=== PATIENT | male | born 1955 | race Caucasian/White ===

== ENCOUNTER 2017-07-13 17:24 | Emergency (ER) | payer MEDICARE, SELFPAY ==
[~2017-07-13] VITALS: Ht 180.3 cm; Wt 122.9 kg
[~2017-07-13 17:24] MED LIST: ALBU.083IS IH; ALBU90OI6 INH; ATEN50 PO; AZIT250 PO; Duoneb 2.5-0.5 M3 ML INH; FLUSAL2505 IH; METF500 PO; Monodox100 MG PO; PRED20 PO; Percocet 5-3251 EACH PO; Prednisone10 M1 PO; TIOT18 INH
[2017-07-13 17:35] LABS: Source, Urine Clean Catch
[2017-07-13 17:41] LABS: Appearance, Urine Hazy (Clear); Bilirubin, Urine Neg (Neg); Blood, Urine 5+ (Neg); Color, Urine Yellow (P-Yellow); Glucose Qualitative, Urine 4+ (Neg); Ketones, Urine Neg (Neg); Leukocyte Esterase, Urine 1+ (Neg); Nitrite, Urine Neg (Neg); Protein, Urine 2+ (Neg); Specific Gravity, Urine 1.015 (1.003-1.022); Urobilinogen, Urine NORM (Normal)
[2017-07-13 18:21] LABS: Bacteria Few /hpf; Red Blood Cells, Urine 50-100 /hpf (0-2); Squamous Epithelial Cells Rare /hpf (Few)
[2017-07-13 18:28] LABS: BASOPHILS ABSOLUTE AUTO 0.01 K/mm3 (0.00-0.23); BASOPHILS PERCENT AUTO 0 % (0-2); EOSINOPHILS ABSOLUTE AUTO 0.01 K/mm3 (0.00-0.68); EOSINOPHILS PERCENT AUTO 0 % (0-6); Hematocrit 44.7 % (37.0-53.0); Hemoglobin 14.8 g/dL (13.5-17.5); IMMATURE GRAN PERCENT AUTO 1 % (0-1); LYMPHOCYTES ABSOLUTE AUTO 1.32 K/mm3 (0.84-5.20); LYMPHOCYTES PERCENT AUTO 8 % (21-46); MONOCYTES PERCENT AUTO 5 % (4-13); Mean Corpuscular HGB Conc 33.1 g/dL (31.5-36.5); Mean Corpuscular Volume 88 fL (80-100); NEUTROPHILS ABSOLUTE AUTO 14.34 K/mm3 (1.96-9.15); NEUTROPHILS PERCENT AUTO 86 % (41-73); Platelet Count 451 K/mm3 (150-400); RDW Coefficient Variation 14.5 % (11.7-14.2); RDW Standard Deviation 46.8 fL (35.1-46.3); White Blood Cell Count 16.58 K/mm3 (4.00-11.30)
[2017-07-13 18:38] LABS: Albumin, Blood 3.5 g/dL (3.4-5.0); Albumin/Globulin Ratio 0.8 (0.8-1.8); Bilirubin, Total 0.3 mg/dL (0.1-1.0); Bun/Creatinine Ratio 23.5 (12.0-20.0); Calcium, Blood 8.9 mg/dL (8.5-10.1); Creatinine, Blood 1.49 mg/dL (0.60-1.20); Globulin, Blood 4.3 g/dL (2.2-4.0); Potassium, Blood 5.1 mmol/L (3.5-5.5); Total Protein, Blood 7.8 g/dL (6.4-8.2)
[2017-07-13] MEDS ORDERED: Roxicodone5 MG PO (20:59)
[2017-07-13] MEDS ORDERED: Zofran4 MG PO (20:59)
[2017-08-20] MEDS ORDERED: ATEN50 PO (16:41)
[2017-08-20] MEDS ORDERED: RAMI5 PO (16:42)
[2017-08-20] MEDS ORDERED: TIOT18 INH (16:42)
[2017-08-20] MEDS ORDERED: Ipratr-Albuterol3 ML INH (16:43)
== END 2017-07-13 21:18 | disposition home or self-care (01) ==
LOC: ER 17:24
PROVIDERS: Nurse Practitioner Family; Physician Assistant
DX: N28.89 Other specified disorders of kidney and ureter (principal); N32.89 Other specified disorders of bladder; J44.9 Chronic obstructive pulmonary disease, unspecified; I10 Essential (primary) hypertension; Z88.0 Allergy status to penicillin; Z79.899 Other long term (current) drug therapy; Z79.52 Long term (current) use of systemic steroids; Z87.891 Personal history of nicotine dependence
CPT/HCPCS: 36415; 51798; 74176; 80053; 81001; 85025; 87086; 96361; 96374; 96375; 96376; 99284; J1170; J1885; J2405; J7030

== ENCOUNTER → 2017-07-23 | Outpatient (CLI) | payer MEDICARE, SELFPAY ==
[~2017-07-23] MED LIST changes: +Ipratr-Albuterol3 ML INH; +RAMI5 PO; +Roxicodone5 MG PO; +SENN187 PO; +Zofran4 MG PO
== END | disposition home or self-care (01) ==
LOC: PLD 07:21
DX: N28.89 Other specified disorders of kidney and ureter (principal)
CPT/HCPCS: 88108

== ENCOUNTER 2017-08-22 07:04 | Inpatient (IN) | payer MEDICARE, SELFPAY ==
[~2017-08-22] VITALS: Ht 180.3 cm; Wt 119.3 kg
[~2017-08-22 07:04] MED LIST changes: -SENN187 PO
[2017-08-22] MEDS ORDERED: Percocet 5-3251 EACH PO (15:46)
[2017-08-23 04:41] LABS: Hemoglobin 13.9 g/dL (13.5-17.5); Mean Corpuscular HGB 28.7 pg (26.0-34.0); Mean Corpuscular HGB Conc 32.3 g/dL (31.5-36.5); Mean Corpuscular Volume 89 fL (80-100); Mean Platelet Volume 9.9 fL (9.1-12.4); Platelet Count 401 K/mm3 (150-400); RDW Coefficient Variation 14.9 % (11.7-14.2); RDW Standard Deviation 48.6 fL (35.1-46.3); Red Blood Cell Count 4.85 M/mm3 (4.30-5.90)
[2017-08-23 05:02] LABS: Bun/Creatinine Ratio 7.4 (12.0-20.0); Calcium, Blood 8.2 mg/dL (8.5-10.1); Creatinine, Blood 1.49 mg/dL (0.60-1.20)
[2017-08-23] MEDS ORDERED: SENN187 PO (08:45)
== END 2017-08-23 12:30 | disposition home or self-care (01) | DRG 661 ==
LOC: SURS 07:04
PROVIDERS: Urology
PROC: 0TT14ZZ Resection of Left Kidney, Percutaneous Endoscopic Approach (ICD-10-PCS; principal; 2017-08-22 09:00)
DX: N28.89 Other specified disorders of kidney and ureter (principal); D41.12 Neoplasm of uncertain behavior of left renal pelvis; I10 Essential (primary) hypertension; J44.9 Chronic obstructive pulmonary disease, unspecified; Z98.1 Arthrodesis status; Z87.891 Personal history of nicotine dependence
CPT/HCPCS: 36415; 80048; 82947; 85027; 88307; 94640; 94760; J0360; J0690; J1170; J2060; J2250; J2370; J3010; J7042; J7120

== ENCOUNTER 2019-05-24 13:18 | Inpatient (IN) | payer MEDICARE ==
[~2019-05-24] VITALS: Ht 180.3 cm; Wt 119.3 kg
[~2019-05-24 13:18] MED LIST changes: +SENN187 PO
[2019-05-24 13:48] LABS: PCO2 Arterial 33.2 mmHg (35-45); PO2 Arterial 65.3 mmHg (80-100); pH Blood Arterial 7.37 (7.35-7.45)
[2019-05-24 14:12] LABS: BASOPHILS PERCENT AUTO 1 % (0-2); EOSINOPHILS PERCENT AUTO 0 % (0-6); Hematocrit 54.7 % (37.0-53.0); Hemoglobin 17.6 g/dL (13.5-17.5); IMMATURE GRAN ABSOLUTE AUTO 0.12 K/mm3 (0.00-0.10); IMMATURE GRAN PERCENT AUTO 1 % (0-1); LYMPHOCYTES ABSOLUTE AUTO 0.81 K/mm3 (0.84-5.20); LYMPHOCYTES PERCENT AUTO 4 % (21-46); MONOCYTES ABSOLUTE AUTO 0.26 K/mm3 (0.16-1.47); MONOCYTES PERCENT AUTO 1 % (4-13); Mean Corpuscular HGB 30.9 pg (26.0-34.0); Mean Corpuscular HGB Conc 32.2 g/dL (31.5-36.5); Mean Corpuscular Volume 96 fL (80-100); NEUTROPHILS ABSOLUTE AUTO 19.08 K/mm3 (1.96-9.15); NEUTROPHILS PERCENT AUTO 94 % (41-73); Platelet Count 340 K/mm3 (150-400); RDW Coefficient Variation 14.5 % (11.7-14.2); RDW Standard Deviation 50.4 fL (35.1-46.3); White Blood Cell Count 20.37 K/mm3 (4.00-11.30)
[2019-05-24] MEDS ORDERED: AMLODIPINE BES2.5 MG PO (14:19)
[2019-05-24 14:21] LABS: International Normalized Ratio 1.03; Prothrombin Time Results 10.9 Sec (9.7-11.5)
[2019-05-24 14:30] LABS: Alanine Aminotransfer (ALT/SGP 33 U/L (12-78); Albumin, Blood 3.7 g/dL (3.4-5.0); Albumin/Globulin Ratio 0.7 (0.8-1.8); Alk Phos 106 U/L (50-136); Anion Gap 13 mmol/L (6-16); Aspartate Aminotrans (AST/SGOT 30 U/L (12-37); Bilirubin, Total 1.5 mg/dL (0.1-1.0); Blood Urea Nitrogen 27 mg/dL (8-24); Bun/Creatinine Ratio 15.8 (12.0-20.0); CO2, Blood 18 mmol/L (21-32); Calcium, Blood 8.6 mg/dL (8.5-10.1); Chloride, Blood 102 mmol/L (98-108); Creatinine, Blood 1.71 mg/dL (0.60-1.20); Ethanol (Alcohol), Blood, Med <3 mg/dL; Globulin, Blood 5.1 g/dL (2.2-4.0); Glomerular Filtration Rate 43 (60-); Glucose, Blood 130 mg/dL (70-99); Potassium, Blood 4.9 mmol/L (3.5-5.5); Sodium, Blood 133 mmol/L (136-145); Total Protein, Blood 8.8 g/dL (6.4-8.2); Troponin I <0.015 ng/mL (0.000-0.040)
[2019-05-24 14:38] LABS: Influenza A Negative (NEGATIVE); Influenza B Negative (NEGATIVE)
[2019-05-24 15:53] LABS: Bilirubin, Urine Neg (Neg); Blood, Urine 4+ (Neg); Glucose Qualitative, Urine Neg (Neg); Ketones, Urine Neg (Neg); Leukocyte Esterase, Urine 1+ (Neg); Nitrite, Urine Neg (Neg); Protein, Urine 3+ (Neg); Urobilinogen, Urine NORM (Normal)
[2019-05-24 16:10] LABS: Appearance, Urine Hazy (Clear); Color, Urine Yellow (P-Yellow); U Amphetamine Screen DETECTED; U Barbituate Screen Not Detected; U Benzodiazapine Screen Not Detected; U Buprenorphine Screen Not Detected; U Cannabinoids Screen DETECTED; U Cocaine Screen Not Detected; U Methadone Screen Not Detected; U Methamphetamine Screen DETECTED; U Opiates Screen Not Detected; U Oxycodone Screen Not Detected; U Phencyclidine Screen Not Detected; U Propoxyphene Screen Not Detected
[2019-05-24 16:12] LABS: Bacteria Few /hpf; Mucus Mod (0-Heavy); Squamous Epithelial Cells Mod /hpf (Few)
[2019-05-24 16:13] LABS: Amorphous Light (0-Heavy)
[2019-05-24 16:15] LABS: Campylobacter Sp Not Detected (NOT DETECT)
[2019-05-24 16:16] LABS: Adenovirus F 40/41 Not Detected (NOT DETECT); Astrovirus Not Detected (NOT DETECT); Cryptosporidium Not Detected (NOT DETECT); Cyclospora Cayetanensis Not Detected (NOT DETECT); E. Coli O157 Not Detected (NOT DETECT); Entamoeba Histolytica Not Detected (NOT DETECT); Enteroaggregative E. coli-EAEC Not Detected (NOT DETECT); Enteropathogenic E. coli-EPEC Not Detected (NOT DETECT); Enterotoxigenic E. coli-ETEC Not Detected (NOT DETECT); Giardia Lamblia Not Detected (NOT DETECT); Norovirus GI/GII Not Detected (NOT DETECT); Plesiomonas Shigelloides Not Detected (NOT DETECT); Rotavirus A Not Detected (NOT DETECT); Salmonella Sp Not Detected (NOT DETECT); Sapovirus Not Detected (NOT DETECT); Shiga Toxin-prod E. coli-STEC Not Detected (NOT DETECT); Shigella/Enteroin E. coli-EIEC Not Detected (NOT DETECT); Vibrio Cholerae Not Detected (NOT DETECT); Vibrio Sp Not Detected (NOT DETECT); Yersinia Enterocolitica Not Detected (NOT DETECT)
--- NOTE | 2019-05-24 17:00 | NUR ---
INITIAL ASSESSMENT PATIENT ARRIVED TO UNIT FROM ER AT 1615. PATIENT INTUBATED AND SEDATED. PATIENT UNRESPONSIVE. R EYE SWOLLEN SHUT, UNABLE TO OPEN, PURULENT FLUID DRAINS OUT WHEN TRY TO OPEN EYE. STATES THAT PATIENT'S EYE WAS FINE YESTERDAY BUT WHEN HE WOKE UP IT WAS SWOLLEN SHUT. L EYE PUPIL 2+ IN SIZE, REACTS BRISKLY TO LIGHT; SCLERAL EDEMA NOTED. TEMPORAL TEMP OF 99.5 DEGREES FAHRENHEIT. CORE TEMP OF 102.7. PATIENT ON VENT SETTINGS OF AC 16, TV 450, PEEP 5, FIO2 OF 65%. EXPIRATORY WHEEZES NOTED IN IVAN, INSPIRATORY WHEEZES NOTED IN LLL, RUL CLEAR, RLL DIMINISHED. PATIENT STATES PATIENT HAS SLEEP APNEA AND IS SUPPOSED TO USE CPAP AT NIGHT AT HOME BUT REFUSES. MODERATE AMOUNT OF WHITE, FROTHY SPUTUM BEING SUCTIONED FROM ETT. PATIENT IN SR, HR 120S TO 130S. BP STABLE. SCDS IN PLACE. ABDOMEN MODERATELY DISTENDED, SOFT, WITH HYPOACTIVE BS. PATIENT HAS RECTAL TUBE IN PLACE, DRAINING YELLOW/ PINK LIQUID. PATIENT C. DIFF POSITIVE. PATIENT HAS OG TO LIS. OG DRAINING GREEN/ BLACK LIQUID IN ER; GUIAC NEGATIVE. TEMP PROBE GIFFORD DRAINING SCANT AMOUNT OF DARK YELLOW URINE. BURN NOTED TO INNER R WRIST- AREA CLEANSED, ANTIBIOTIC OINTMENT AND DRESSING APPLIED. BRUISES AND SCABS SCATTERED T/O BODY. PROPOFOL INFUSING AT 30 MCG/ KG/ MINUTE. AT BEDSIDE. BED LOW. WILL CONTINUE TO MONITOR FREQUENTLY THROUGHOUT SHIFT.
--- NOTE | 2019-05-24 18:50 | NUR ---
DR. ZAMBRANO VIEWED CHEST XRAY. STATED THAT CENTRAL LINE GOOD TO USE.
--- NOTE | 2019-05-24 19:15 | NUR ---
SHIFT SUMMARY PATIENT REMAINED INTUBATED AND SEDATED ON PROPOFOL. PATIENT REMAINS ON SAME VENT SETTINGS. PATIENT REMAINS IN ST, HYPOTENSIVE. LEVOPHED INFUSING AT 4 MCG/ MINUTE. 2 L NS BOLUS GIVEN SINCE ARRIVAL TO ICU. ALBUMIN INFUSING. IV ANTIBIOTICS BEING GIVEN. DR. ZAMBRANO PLACED CENTRAL LINE AND OK TO BE USED. ADMIT DATA COMPLETE EXCEPT HOME MED LIST; TO BRING LIST IN WHEN SHE COMES NEXT. NO OTHER ACUTE CHANGES TO NOTE ON AT THIS TIME. REPORT GIVEN TO ASSUMING SOUND INSTALLATION WORKER NURSES. NO SIGNS OF PAIN AT THIS TIME. BED LOW. WENT HOME FOR NIGHT.
--- NOTE | 2019-05-24 21:30 | NUR ---
ASSUMPTION OF CARE ASSUMED CARE OF PT AT 1900. PT INTUBATED AND SEDATED, VENT SET TO AC 16/450/5/65%, PROPOFOL RUNNING AT 45. LUNG SOUNDS COARSE AND DIMINISHED IN THE BASES, TACHYPNEIC WITH RATE 25-30'S. MONITOR SHOWS SINUS TACHYCARDIA WITH FREQUENT PAC'S, RATE 100-120, BP MAINTAINED WITH LEVO GTT TITRATED FROM 4 TO 10 (SEE FLOWSHEET). PT RESPONDS TO PAINFUL STIMULI, NO GAG REFLEX PRESENT. RECTAL TUBE IN PLACE DRAINING LIQUID PINK/YELLOW STOOL. GIFFORD PRESENT, LITTLE URINE OUTPUT NOTED AT THIS TIME. CENTRAL LINE TO L SUBCLAVIAN, INFUSING.
[2019-05-24 22:35] LABS: PCO2 Arterial 40.7 mmHg (35-45); PO2 Arterial 142 mmHg (80-100); pH Blood Arterial 7.18 (7.35-7.45)
[2019-05-25 04:23] LABS: BASOPHILS ABSOLUTE AUTO 0.05 K/mm3 (0.00-0.23); BASOPHILS PERCENT AUTO 0 % (0-2); Hematocrit 42.1 % (37.0-53.0); Hemoglobin 12.9 g/dL (13.5-17.5); LYMPHOCYTES ABSOLUTE AUTO 0.16 K/mm3 (0.84-5.20); LYMPHOCYTES PERCENT AUTO 1 % (21-46); MONOCYTES ABSOLUTE AUTO 1.03 K/mm3 (0.16-1.47); MONOCYTES PERCENT AUTO 5 % (4-13); Mean Corpuscular HGB 30.5 pg (26.0-34.0); Mean Corpuscular HGB Conc 30.6 g/dL (31.5-36.5); Mean Platelet Volume 11.2 fL (9.1-12.4); Platelet Count 228 K/mm3 (150-400); RDW Coefficient Variation 15.1 % (11.7-14.2); RDW Standard Deviation 55.5 fL (35.1-46.3); Red Blood Cell Count 4.23 M/mm3 (4.30-5.90); White Blood Cell Count 22.82 K/mm3 (4.00-11.30)
[2019-05-25 04:25] LABS: EOSINOPHILS PERCENT AUTO 0 % (0-6); IMMATURE GRAN ABSOLUTE AUTO 0.21 K/mm3 (0.00-0.10); IMMATURE GRAN PERCENT AUTO 1 % (0-1); Mean Corpuscular Volume 100 fL (80-100); NEUTROPHILS ABSOLUTE AUTO 21.37 K/mm3 (1.96-9.15); NEUTROPHILS PERCENT AUTO 94 % (41-73)
[2019-05-25 04:41] LABS: BAND PERCENT MAN 44 % (0-8); BASOPHILS PERCENT MAN 0 % (0-2); EOSINOPHILS PERCENT MAN 0 % (0-6); METAMYELOCYTE ABSOLUTE MAN 0.45 K/mm3 (0.00-0.00); METAMYELOCYTE PERCENT MAN 2 % (0-0); MONOCYTES ABSOLUTE MAN 0.45 K/mm3 (0.16-1.47); MONOCYTES PERCENT MAN 2 % (4-13); SEG NEUTROPHILS PERCENT MAN 52 % (41-73); TOTAL CELLS COUNTED 100
[2019-05-25 04:45] LABS: Magnesium, Blood 1.6 mg/dL (1.6-2.4); Troponin I 0.054 ng/mL (0.000-0.040)
[2019-05-25 04:47] LABS: Alanine Aminotransfer (ALT/SGP 18 U/L (12-78); Albumin/Globulin Ratio 1.1 (0.8-1.8); Alk Phos 40 U/L (50-136); Anion Gap 7 mmol/L (6-16); Aspartate Aminotrans (AST/SGOT 22 U/L (12-37); Bilirubin, Total 0.8 mg/dL (0.1-1.0); Blood Urea Nitrogen 35 mg/dL (8-24); Bun/Creatinine Ratio 9.4 (12.0-20.0); CO2, Blood 19 mmol/L (21-32); Calcium, Blood 6.8 mg/dL (8.5-10.1); Chloride, Blood 111 mmol/L (98-108); Creatinine, Blood 3.73 mg/dL (0.60-1.20); Globulin, Blood 2.7 g/dL (2.2-4.0); Glomerular Filtration Rate 18 (60-); Glucose, Blood 255 mg/dL (70-99); Phosphorus, Blood 3.3 mg/dL (2.5-4.9); Potassium, Blood 6.2 mmol/L (3.5-5.5); Sodium, Blood 137 mmol/L (136-145); Vancomycin, Trough 20.1 ug/mL (5.0-10.0)
[2019-05-25 04:49] LABS: Total Protein, Blood 5.7 g/dL (6.4-8.2)
[2019-05-25 05:16] LABS: PCO2 Arterial 41.3 mmHg (35-45); pH Blood Arterial 7.24 (7.35-7.45)
--- NOTE | 2019-05-25 07:25 | NUR ---
SHIFT SUMMARY PT REMAINS INTUBATED AND SEDATED RESPONDS TO PAINFUL STIMULI, VENT SET TO AC 16/450/5/30%, 02 SATURATIONS MAINTAINED ABOVE 90%, LUNGS SOUNDS COARSE AND DIMINISHED IN THE BASES T/O SHIFT, TACHYPNEIC WITH RATE 25-LOW 30'S. MONITOR SHOWS SINUS RHYTHM, TACHYCARDIA WITH PAC'S, LEVO GTT AT 15 TO MAINTAIN BP. TMAX THIS SHIFT 102.4, PRN TYLENOL ADMINISTERD x2. RECTAL TUBE IN PLACE, MINIMAL DRAINAGE DURING LAST HALF OF SHIFT. GIFFORD IN PLACE, LOW URINE OUTPUT THIS SHIFT. CALL PLACED TO DR ZAMBRANO @4608 REGARDING MORNING LABS (POTASSIUM 6.2, ABG pH 7.242) SEE NEW ORDERS. PHARMACY NOTIFIED OF VANCO LEVEL, WILL CONTINUE PO AND IV VANCO. R EYE WOUND APPEARS TO BE WORSENING, NOTIFIED DAY SHIFT RN.
--- NOTE | 2019-05-25 07:40 | NUR ---
ASSUMED CARE AT 0700. REPORT FROM SHANDA QUINTERO. PT INTUBATED AND SEDATED. VENT SETTINGS AC 16/450/5/30%. RR 30-40'S. LUNGS COARSE THROUGHOUT. PT c GAG REFLEX. RESPONSES TO PAINFUL STIMULI. DOES NOT FOLLOW COMMANDS. PROPOFOL INFUSING AT 43 MCG/KG/MIN. ST c PVCS ON MONITOR. LEVOPHED INFUSING AT 15 MCG/MIN. WILL CONTINUE TO TITRATE FOR MAP<65. RIGHT EYE SWOLLEN, RED, WHITE SPOT IN MEDIAL CORNER OF EYE, SEROUS DRAINAGE. SCLERA EDEMA. OGT CLAMPED, ABD FIRM, DISTENDED c HYPOACTIVE BTS. TEMP PROBE GIFFORD PATENT AND DRAINING TO GRAVITY, SEPIDEH URINE c SEDIMENT. TEMP 101.7. WILL MEDICATED c PRN TYLENOL. WHITE DRAINAGE FROM URETHRA, CATH CARE COMPLETED. RECTAL TUBE IN PLACE, DRAINING TO GRAVITY. BROWN WATERY STOOL IN BAG, CDIFF POSITIVE, CONTACT ISOLATION. SCDS IN PLACE. DRESSINGS TO BILATERAL WRISTS. CENTRAL LINE TO LEFT SUBCLAVIAN, DRESSING C/D/I, INFUSING. WILL CONTINUE TO MONITOR.
--- NOTE | 2019-05-25 09:54 | NUR ---
DR ZAMBRANO AND DR CONTEH AT BEDSIDE FOR ASSESSMENT. PER DR ZAMBRANO, ADVANCE ETT 2.5 CM, COMPLETED BHY JAEL RT, START VASOPRESSIN, TITRATE LEVOPHED DOWN IF POSSIBLE, WILL ORDER KAYEXELATE FOR K+, START TUBE FEEDS, AND CONTINUE STERIODS AT THIS TIME. WILL MONITOR BP AND I/O THROUGHOUT SHIFT.
[2019-05-25 09:57] LABS: Bun/Creatinine Ratio 9.7 (12.0-20.0); Calcium, Blood 6.7 mg/dL (8.5-10.1); Creatinine, Blood 3.71 mg/dL (0.60-1.20); Potassium, Blood 5.2 mmol/L (3.5-5.5)
[2019-05-25 16:38] LABS: Bun/Creatinine Ratio 10.7 (12.0-20.0); Calcium, Blood 7.1 mg/dL (8.5-10.1); Creatinine, Blood 3.46 mg/dL (0.60-1.20); Potassium, Blood 4.2 mmol/L (3.5-5.5)
--- NOTE | 2019-05-25 19:00 | NUR ---
SHIFT SUMMARY PT REMAINS INTUBATED AND SEDATED. VENT SETTINGS AC 16/450/5/25%. PT INTERMITTANTLY WHEEZING THROUGHOUT SHIFT. BREATHING TX GIVEN PRN BY RT. VASOPRESSIN STARTED THIS SHIFT, INFUSING AT 0.04 UNITS/MIN, LEVOPHED TITRATED FOR MAP >65, INFUSING AT 5 MCG/MIN. PT NSR c INTERMITTANT PAC'S AT THIS TIME. PT c BIGIMANY PACS THIS AM FOR APPROX 3 HOURS, RADIAL PULSE RATE DURING THAT TIME 50-60'S. PROPOFOL INFUSING AT 40 MCG/KG/MIN. PT RESPONSIVE TO PAINFUL STIMULI. ATTEMPTED SEDATION VACATION THIS SHIFT. PT BEGAN THRASHING HEAD, GRIMACING, CLENCHING JAW, DID NOT FOLLOW DIRECTIONS. PROPOFOL RESTARTED. DR GHOTRA IN TO REASSESS RIGHT EYE. RECOMMENDED CONTINUATION OF ANTIBIOTICS. SODIUM BICARB DRIP CHANGED TO STERILE WATER c BICARB FOR HIGH CBG'S. INFUSING AT 175 ML/HR. INSULIN DRIP STARTED, TITRATED FOR CBG <160, INFUSING AT 5 UNITS/HR AT THIS TIME. IMPROVED URINARY OUTPUT TODAY, SEPIDEH URINE c SEDIMENT, 750 ML OUT THIS SHIFT. TEMP PROBE GIFFORD PATENT AND DRAINING TO GRAVITY. STOOL DARK, LIQUID. RECTAL TUBE IN PLACE, DRAINING TO GRAVITY. TUBE FEEDS STARTED TODAY, TRICKLE FEED AT 10 ML/HR, FLUSH Q4, 30 ML. RESIDUALS 160ML, REFED. , TYLER, IN TO VISIT AND UPDATED BY PHONE THIS SHIFT. REPORT TO ONCOMING NURSE.
--- NOTE | 2019-05-25 20:30 | NUR ---
ASSUMPTION OF CARE ASSUMED CARE OF PT AT 1900. PT INTUBATED AND SEDATED ON 40 OF PROPOFOL, NOT RESPONDING TO PAINFUL STIMULI, PROPOFOL DECREASED TO 35. VENT SET TO AC 16/450/5/25%, O2 SATURATIONS MAINTAINED LOW-MID 90'S, LUNG SOUNDS CLEAR AND DIMINISHED IN THE BASES. MONITOR SHOWS NSR TO SINUS TACH WITH RATE 90'S-105, FEW PAC'S, LEVO GTT @ 5 AND VASO @0.04, SYSTOLIC BP 130'S, LEVO TITRATED TO 2. SKIN IS WARM, WOUNDS TO BILAT WRISTS WITH MEPILIEX DRESSING. R EYE HAS DECREASED SWELLING TO PREVIOUS. GIFFORD IN PLACE AND DRAINING YELLOW URINE WITH SEDIMENT, MINIMAL PURULENT DRAINAGE FROM URETHRA NOTED AROUND GIFFORD. INSULIN GTT RUNNING AT 5u/hr, MOST RECENT CBG 125, WILL CONTINUE TO MONITOR Q1H. PT BECAME AGITATED, SHAKING HEAD WITH ORAL CARE, PROPOFOL TITRATED TO 40.
--- NOTE | 2019-05-25 22:56 | NUR ---
CALL TO DR ZAMBRANO, UPDATED ON PTS STATUS. VASOPRESSIN AND LEVOPHED CURRENTLY ON SB, INSULIN GTT DOWN TO 3u/hr WITH CBG'S<130 X3, BICARB RUNNING IN STERILE WATER. ORDERS TO DC INSULIN GTT AND CHECK CBG'S Q6H, PT TO REMAIN ON BICARB IN STERILE WATER.
--- NOTE | 2019-05-26 03:03 | NUR ---
PT BECOMING MORE AWAKE, SHAKING HEAD, PULLING ON RESTRAINTS, NOT FOLLOWING DIRECTIONS. PT ATTEMPTS TO OPEN EYES WITH VERBAL STIMULATION, GRIMACING. REASSURED PT HE WAS SAFE AND IN THE HOSPITAL. INCREASED PROPOFOL TO 45 AND ADMINISTERED PRN FENTANYL FOR PAIN/COMFORT WITH GOOD EFFECT.
[2019-05-26 03:15] LABS: BASOPHILS ABSOLUTE AUTO 0.03 K/mm3 (0.00-0.23); BASOPHILS PERCENT AUTO 0 % (0-2); Hematocrit 34.9 % (37.0-53.0); Hemoglobin 11.2 g/dL (13.5-17.5); LYMPHOCYTES ABSOLUTE AUTO 0.26 K/mm3 (0.84-5.20); LYMPHOCYTES PERCENT AUTO 1 % (21-46); MONOCYTES ABSOLUTE AUTO 0.35 K/mm3 (0.16-1.47); MONOCYTES PERCENT AUTO 2 % (4-13); Mean Corpuscular HGB 31.2 pg (26.0-34.0); Mean Corpuscular HGB Conc 32.1 g/dL (31.5-36.5); Mean Platelet Volume 11.6 fL (9.1-12.4); Platelet Count 147 K/mm3 (150-400); RDW Coefficient Variation 14.8 % (11.7-14.2); RDW Standard Deviation 53.9 fL (35.1-46.3); Red Blood Cell Count 3.59 M/mm3 (4.30-5.90); White Blood Cell Count 18.19 K/mm3 (4.00-11.30)
[2019-05-26 03:16] LABS: EOSINOPHILS PERCENT AUTO 0 % (0-6); IMMATURE GRAN ABSOLUTE AUTO 0.17 K/mm3 (0.00-0.10); IMMATURE GRAN PERCENT AUTO 1 % (0-1); Mean Corpuscular Volume 97 fL (80-100); NEUTROPHILS ABSOLUTE AUTO 17.38 K/mm3 (1.96-9.15); NEUTROPHILS PERCENT AUTO 96 % (41-73)
[2019-05-26 03:32] LABS: Anion Gap 11 mmol/L (6-16); Blood Urea Nitrogen 36 mg/dL (8-24); Bun/Creatinine Ratio 11.8 (12.0-20.0); CO2, Blood 28 mmol/L (21-32); Calcium, Blood 7.2 mg/dL (8.5-10.1); Chloride, Blood 101 mmol/L (98-108); Creatinine, Blood 3.06 mg/dL (0.60-1.20); Glomerular Filtration Rate 22 (60-); Glucose, Blood 208 mg/dL (70-99); Magnesium, Blood 1.5 mg/dL (1.6-2.4); Potassium, Blood 3.7 mmol/L (3.5-5.5); Sodium, Blood 140 mmol/L (136-145)
[2019-05-26 03:35] LABS: BAND PERCENT MAN 26 % (0-8); BASOPHILS PERCENT MAN 0 % (0-2); EOSINOPHILS PERCENT MAN 0 % (0-6); MONOCYTES PERCENT MAN 0 % (4-13); NEUTROPHILS ABSOLUTE MAN 18.19 K/mm3 (1.96-9.15); SEG NEUTROPHILS PERCENT MAN 74 % (41-73); TOTAL CELLS COUNTED 100
--- NOTE | 2019-05-26 06:45 | NUR ---
SHIFT SUMMARY PT REMAINS INTUBATED AND SEDATED, VENT SET TO AC 16/450/5/30%, PROPOFOL DECREASED THIS SHIFT TO ASSESS NEURO STATUS, PT OPENS EYES, DOES NOT FOLLOW DIRECTIONS, PROPOFOL TITRATED TO 50 PT BECOMES MORE AGITATED, RESTLESS AND PULLING AT RESTRAINTS, PRN FENTANYL x2 ADMINISTERED THIS SHIFT AD ADJUNCT TO SEDATION TO INCREASE COMFORT FOR PT. FENTANYL ADEQUATE FOR PAIN AND COMFORT MANAGEMENT, DECREASED RESPIRATIONS AND O2 SATURATIONS NOTED AFTER ADMINISTRATION REQUIRING INCREASED FiO2. LUNGS COARSE WITH SOME WHEEZING NOTED PERIODICALLY T/O SHIFT. MONTIOR SHOWS SINUS RHYTHM WITH RATE 90'S-120'S, LEVO AND VASOPRESSIN ON SB WITH MAPS MAINTAINED ABOVE 70. GIFFORD AND RECTAL TUBE IN PLACE, GOOD URINE OUTPUT THIS SHIFT.
--- NOTE | 2019-05-26 08:43 | NUR ---
ASSUMED CARE: REPORT RECEIVED FROM SHANDA Aviles RN. ASSUMED CARE OF THIS PT AT APPROX 0700. ON ASSESSMENT, THE PT IS RESTING QUIETLY. HE REMAINS INTUBATED & SEDATED. BILAT SOFT WRIST RESTRAINTS IN PLACE. LS ARE COARSE T/O, OCCASIONAL WHEEZING NOTED. VENT SETTINGS: AC 16, TV 450, PEEP 5 & FIO2 30%. MONITOR SHOWS SR-ST W/ HR 90-100s, FREQUENT PAC's NOTED. BP STABLE W/ PRESSORS OFF SINCE 0400 PER REPORT. OGT W/ TRICKLE FEEDS INFUSING AT GOAL RATE OF 10 ML/HR. RECTAL TUBE DRAINING DARK GREEN LIQUID STL. TEMP GIFFORD PATENT/ DRAINING. WILL CONTINUE TO MONITOR & UPDATE NEEDED.
--- NOTE | 2019-05-26 10:00 | NUR ---
DR ROBERTO: PROVIDER AT BEDSIDE TO SEE PT. ORDERS TO DECREASE RATE OF BICARB INFUSION TO 75 ML/HR. ORDERS ALSO PLACED FOR ABG TO BE DRAWN AT 1200. WILL CONTINUE TO MONITOR & UPDATE NEEDED.
--- NOTE | 2019-05-26 11:00 | NUR ---
LEVOPHED: LEVOPHED RESTARTED FOR CONTINUED MAP < 65. SEDATION LIGHTENED TO INCREASE BP BUT PT DID NOT TOLERATE, BECOMING VERY RESTLESS & BP REMAINING LOW. SEDATION INCREASED AGAIN & LEVOPHED RESTARTED.
[2019-05-26 13:12] LABS: PCO2 Arterial 47.7 mmHg (35-45); PO2 Arterial 61.7 mmHg (80-100); pH Blood Arterial 7.42 (7.35-7.45)
--- NOTE | 2019-05-26 14:21 | NUR ---
TUBE FEEDS: RATE INCREASED TO 25 ML/HR PER DIETARY. RESIDUALS HAVE BEEN 0 PRIOR TO THIS. MAY BE ADVANCED TO GOAL RATE OF 35 ML/HR AT 2200 TONIGHT.
--- NOTE | 2019-05-26 16:00 | NUR ---
DR MONTOYA: PROVIDER AT BEDSIDE TO SEE PT. REQUEST FOR HER TO CHECK EFM RECORDS TO SEE IF PT HAS RECEIVED FLU VACC THIS YEAR, SHE STS HE RECEIVED FLU VACC ON 03/26/19. DOCUMENTATION PRINTED & PLACED IN CHART. REQUEST ALSO FOR SS INSULIN COVERAGE R/T PT's HIGH CBG READINGS & NOW INCREASED TF RATE. ORDERS PLACED. WILL CONTINUE TO MONITOR & UPDATE NEEDED.
--- NOTE | 2019-05-26 18:28 | NUR ---
SHIFT SUMMARY: NO ACUTE CHANGES THIS SHIFT. PT REMAINS INTUBATED & SEDATED W/ PROPOFOL. OPENS EYES TO HIS NAME, L EYE REMAINS VERY SWOLLEN & WEEPING, IMPROVED PER FAMILY STATEMENTS. BILAT SOFT WRIST RESTRAINTS IN PLACE. VENT SETTINGS: AC 16, TV 450, PEEP 5 & FIO2 30%. LS COARSE T/O, DIM IN BASES W/ OCC WHEEZING. MONITOR SHOWS SR-ST W/ HR 90-110s. BP STABLE W/ LEVOPHED DRIP, TITRATION IN FLOWSHEET. ABD W/ MOD DISTENTION, NO GRIMACE TO PALPATION. TF INFUSING PER ORDERS, CURRENTLY AT 25 ML/HR, CAN BE ADVANCED TO 35 ML/HR AT 2200. RECTAL TUBE W/ DARK GREEN LIQUID BM. TEMP IGFFORD PATENT/ DRAINING DARK YELLOW URINE. MULTIPLE SKIN WOUNDS DOCUMENTED IN ASSESSMENT ARE UNCHANGED. WILL CONTINUE TO MONITOR & REPORT OFF TO ONCOMING RN.
--- NOTE | 2019-05-26 21:45 | NUR ---
ASSUMPTION OF CARE ASSUMED CARE OF PT AT 1900, PT INTUBATED AND SEDATED, PROPOFOL AT 50mcg/kg/min, RESPONDS TO PAINFUL/NOXIOUS STIMULI AND OCCASIONALLY OPENS EYES TO VERBAL STIMULI. VENT SET TO AC 16/450/5/30%, LUNGS ARE CLEAR AND DIMINISHED IN THE BASES. MONITOR SHOWS TACHYCARDIA WITH FREQUENT PAC'S, RATE 100-120, LEVO RUNNING AT 1 mcg/min TO MAINTAIN BP, LEVO PLACED ON SB @ 2130. BOWEL TONES HYPOACTIVE, TUBE FEED RUNNING AT 25ml/hr PER OG, LOW RESIDUALS. FOELY DRAINING CLEAR YELLOW URINE. RECTAL TUBE IN PLACE DRAINING LIQUID DARK GREEN STOOL. R EYE SWELLING IMPROVING, MODERATE DRAINAGE NOTED, R PUPIL NON REACTIVE TO LIGHT.
--- NOTE | 2019-05-27 00:30 | NUR ---
PT WAKING UP WHILE PROPOFOL ON SB FOR BLOOD DRAW. OPENS EYES, FOLLOWING DIRECTIONS, ANSWERING YES/NO QUESTIONS APPROPRIATELY. INFORMED PT HE WAS IN THE HOSTPITAL, IS SAFE, AND HAS NEEDED VENTILATOR ASSISTANCE TO BREATHE. PT APPEARED AGITATED, CALMED QUICKLY ONCE PROPOFOL WAS RESTARTED.
[2019-05-27 03:29] LABS: BASOPHILS ABSOLUTE AUTO 0.03 K/mm3 (0.00-0.23); BASOPHILS PERCENT AUTO 0 % (0-2); EOSINOPHILS PERCENT AUTO 0 % (0-6); Hematocrit 34.9 % (37.0-53.0); Hemoglobin 11.2 g/dL (13.5-17.5); IMMATURE GRAN ABSOLUTE AUTO 0.64 K/mm3 (0.00-0.10); IMMATURE GRAN PERCENT AUTO 3 % (0-1); LYMPHOCYTES ABSOLUTE AUTO 0.63 K/mm3 (0.84-5.20); LYMPHOCYTES PERCENT AUTO 3 % (21-46); MONOCYTES ABSOLUTE AUTO 0.78 K/mm3 (0.16-1.47); MONOCYTES PERCENT AUTO 4 % (4-13); Mean Corpuscular HGB 31.2 pg (26.0-34.0); Mean Corpuscular HGB Conc 32.1 g/dL (31.5-36.5); Mean Corpuscular Volume 97 fL (80-100); Mean Platelet Volume 12.1 fL (9.1-12.4); NEUTROPHILS ABSOLUTE AUTO 19.89 K/mm3 (1.96-9.15); NEUTROPHILS PERCENT AUTO 91 % (41-73); Platelet Count 149 K/mm3 (150-400); RDW Coefficient Variation 14.6 % (11.7-14.2); RDW Standard Deviation 52.8 fL (35.1-46.3); Red Blood Cell Count 3.59 M/mm3 (4.30-5.90); White Blood Cell Count 21.97 K/mm3 (4.00-11.30)
[2019-05-27 03:47] LABS: Alanine Aminotransfer (ALT/SGP 21 U/L (12-78); Albumin, Blood 2.9 g/dL (3.4-5.0); Alk Phos 51 U/L (50-136); Anion Gap 6 mmol/L (6-16); Aspartate Aminotrans (AST/SGOT 10 U/L (12-37); Bilirubin, Total 0.5 mg/dL (0.1-1.0); Blood Urea Nitrogen 40 mg/dL (8-24); Bun/Creatinine Ratio 15.2 (12.0-20.0); CO2, Blood 34 mmol/L (21-32); Calcium, Blood 7.6 mg/dL (8.5-10.1); Chloride, Blood 100 mmol/L (98-108); Creatinine, Blood 2.64 mg/dL (0.60-1.20); Glomerular Filtration Rate 26 (60-); Glucose, Blood 280 mg/dL (70-99); Magnesium, Blood 2.2 mg/dL (1.6-2.4); Phosphorus, Blood 2.7 mg/dL (2.5-4.9); Potassium, Blood 3.6 mmol/L (3.5-5.5); Sodium, Blood 140 mmol/L (136-145); Total Protein, Blood 5.9 g/dL (6.4-8.2); Vancomycin, Random 13.5 ug/mL
[2019-05-27 05:04] LABS: PCO2 Arterial 48.2 mmHg (35-45); PO2 Arterial 61.8 mmHg (80-100); pH Blood Arterial 7.45 (7.35-7.45)
--- NOTE | 2019-05-27 06:03 | NUR ---
SHIFT SUMMARY PT REMAINS INTUBATED AND SEDATED ON PROPOFOL @ 50mcg/kg/min, RESPONDS TO PAINFUL STIMULI, VENT SET TO AC 16/450/5/30%, LS CLEAR TO COARSE T/O SHIFT. SBT THIS SHIFT, SEE RT NOTES, PT WOKE UP, OPENED EYES, FOLLOWS DIRECTIONS, TOLERATED VENT WELL OFF OF SEDATION, SOME AGITATION NOTED. MONITOR SHOWS TACHYCARDIA WITH FREQUENT PAC'S. LEVO PUT ON SB EARLY IN SHIFT, BP MAPS 70-90 T/O SHIFT. GIFFORD IN PLACE AND PT DIURESING WELL, RECTAL TUBE IN PLACE, DRAINING DARK GREEN LIQUID STOOL.
--- NOTE | 2019-05-27 07:20 | NUR ---
START OF SHIFT NOTE: RECEIVED REPORT FROM SHANDA SALAMANCA, RN/LUIS MINA RN, ASSUMED CARE, PATIENT IN ON MECHANICAL VENTILATION, SETTINGS: ac 16/5/450/30 % OS, NOC SHIFT REPORTED THAT PATIENT DID WELL ON SEDATION VACATION, LEVOPHED OFF SINCE 21:30 ON 05-26-19, PATIENTS SBP'S IN LOW 100'S, PATIENT HAS A RED SWOLLEN RIGHT EYE WHICH APPEARS TO BE A WOUND OPENENING ON LID WITH SOME FLUID OOZING OUT, ORAL CARE PROVIDED, PATIENT TOLERATED WELL, LUNG SOUNDS DIMINISHED, SUBCLAVIAN LINE ON LEFT, SAFE SET IN PLACE FOR BLOOD DRAWS, PIV IN R AC, PATIENT IS TACHY WITH PVC'S, HR 110'S, AFEBRILE, NO SIGNS OF PAIN/DISCOMFORT NOTED, RECTAL TUBE IN PLACE, GIFFORD CATHETER WITH TEMP PROBE IN PLACE, CALL LIGHT IN REACH, WILL CONTINUE TO MONITOR.
--- NOTE | 2019-05-27 09:44 | NUR ---
DR. ZAMBRANO IN TO SEE PATIENT, WILL NOT EXTUBATE TODAY D/T CONTINUOUS COARSE AND WHEEZY LUNG SOUNDS, ALSO MAY HAVE TO RESTART LEVOPHED D/T SBP'S IN 80'S, CALL LIGHT IN REACH, WILL CONTINUE TO MONITOR.
--- NOTE | 2019-05-27 14:00 | NUR ---
FAMILY IN TO SEE PATIENT, QUESTIONS ANSWERED, UPDATED ON PATIENT CONDITION, CALL LIGHT IN REACH, WILL CONTINUE TO MONITOR.
--- NOTE | 2019-05-27 17:55 | NUR ---
SHIFT SUMMARY NOTE: NO ACUTE EVENTS DURING THIS SHIFT, PATIENT REMAINED ON MECHANICAL VENTILATION, SETTINGS 16/5/450/30 %, SATING AT 92 %, HAD SOME ORAL SECRETIONS, NO SECRETIONS WITH CLOSED CIRCUIT SUCTIONING, REMAINS ON PROPOFOL AT 50, ALSO RECEIVES MULTIPLE ANTIBIOTICS, RECTAL TUBE IN PLACE AND CONTINUES TO HAVE GREEN/BLACKISH LIQUID STOOLS, GIFFORD CATHETER IN PLACE, TEA COLORED URINE OF ADEQUATE AMOUNT, LEFT SUBCLAVIAN CENTRAL LINE HAS GOOD BLOOD RETURN AND FLUSHES WELL, PATIENT WAS REPOSITIONED MULTIPLE TIMES AND RECEIVED ORAL CARE, RESTRAINTS IN PLACE TO PREVENT ACCIDENTAL EXTUBATION AND PULLING ON LINES/TUBES, FOR DETAILS SEE SHIFT ASSESSMENT DOCUMENTATION AND NURSES NOTES, CALL LIGHT IN REACH, WILL CONTINUE TO MONITOR AND GIVE REPORT TO ONCOMING SUMO WRESTLER.
--- NOTE | 2019-05-27 19:00 | NUR ---
ASSUMED CARE ASSUMED CARE OF PATIENT. AWAKE AND ALERT. ORIENTED TO SELF, FAMILY, AND TO THE FACT THAT SHE IS IN THE HOSPITAL, BUT NOT TO TIME OF DAY OR REASON FOR HOSPITALIZATION. AT BEDSIDE. PT IS OCCASIONALLY TEARFUL AND ANXIOUS, BUT CALMS WITH REASSURANCE. MONITOR SHOWS PACED RHYTHM, RATE 60-70s. SBP 150s. REMAINS ON 2L NC TO MAINTAIN SATS >90%. RESPIRATIONS EVEN AND UNLABORED. DENIES C/O PAIN OR DISCOMFORT. GIFFORD PATENT AND DRAINING SLIGHTLY CLOUDY YELLOW URINE. SEE SHIFT ASSESSMENT FOR FULL ASSESSMENT.
--- NOTE | 2019-05-27 19:00 | NUR ---
ASSUMED CARE ASSUMED CARE OF PATIENT. REMAINS INTUBATED- AC 16, TV 450, PEEP 5, FIO2 30%. RR 16. SEDATED WITH PROPOFOL @ 50MCG/KG/MIN. WITHDRAWS TO STIMULI WITH GROSS MOTOR MOVEMENT NOTED. DOES NOT FOLLOW COMMANDS. CLAMPS MOUTH SHUT WHEN ORAL CARE IS DONE. BILATERAL SOFT WRIST RESTRAINTS IN PLACE TO PREVENT SELF-EXTUBATION. OG WITH VITAL HIGH PROTEIN INFUSING AT 25CC/HR. RESIDUAL 110CC- TUBE FEEDING INCREASED TO GOAL RATE OF 35CC/HR. RECTAL TUBE IN PLACE- DRAINING LIQUID GREENISH-BROWN STOOL. GIFFORD PATENT AND DRAINING CLEAR YELLOW URINE. PAS TO BLE. WOUNDS NOTED AND DRSGS C/D/I. SEE SHIFT ASSESSMENT FOR FULL ASSESSMENT.
[2019-05-28 03:47] LABS: BASOPHILS ABSOLUTE AUTO 0.03 K/mm3 (0.00-0.23); BASOPHILS PERCENT AUTO 0 % (0-2); EOSINOPHILS PERCENT AUTO 0 % (0-6); Hematocrit 35.1 % (37.0-53.0); Hemoglobin 11.3 g/dL (13.5-17.5); IMMATURE GRAN ABSOLUTE AUTO 0.24 K/mm3 (0.00-0.10); IMMATURE GRAN PERCENT AUTO 1 % (0-1); LYMPHOCYTES ABSOLUTE AUTO 1.11 K/mm3 (0.84-5.20); LYMPHOCYTES PERCENT AUTO 6 % (21-46); MONOCYTES ABSOLUTE AUTO 0.75 K/mm3 (0.16-1.47); MONOCYTES PERCENT AUTO 4 % (4-13); Mean Corpuscular HGB 31.6 pg (26.0-34.0); Mean Corpuscular HGB Conc 32.2 g/dL (31.5-36.5); Mean Corpuscular Volume 98 fL (80-100); Mean Platelet Volume 12.5 fL (9.1-12.4); NEUTROPHILS ABSOLUTE AUTO 16.59 K/mm3 (1.96-9.15); NEUTROPHILS PERCENT AUTO 89 % (41-73); Platelet Count 143 K/mm3 (150-400); RDW Coefficient Variation 14.9 % (11.7-14.2); RDW Standard Deviation 54.3 fL (35.1-46.3); Red Blood Cell Count 3.58 M/mm3 (4.30-5.90); White Blood Cell Count 18.72 K/mm3 (4.00-11.30)
[2019-05-28 04:16] LABS: Anion Gap 5 mmol/L (6-16); Blood Urea Nitrogen 53 mg/dL (8-24); Bun/Creatinine Ratio 20.4 (12.0-20.0); CO2, Blood 35 mmol/L (21-32); Calcium, Blood 7.9 mg/dL (8.5-10.1); Chloride, Blood 102 mmol/L (98-108); Glomerular Filtration Rate 27 (60-); Glucose, Blood 266 mg/dL (70-99); Magnesium, Blood 2.6 mg/dL (1.6-2.4); Phosphorus, Blood 3.7 mg/dL (2.5-4.9); Potassium, Blood 3.4 mmol/L (3.5-5.5); Sodium, Blood 142 mmol/L (136-145); Vancomycin, Random 17.1 ug/mL
--- NOTE | 2019-05-28 04:35 | NUR ---
SEDATION VACATION PROPOFOL TITRATED DOWN AND OFF FOR SEDATION VACATION. RT AT BEDSIDE FOR WEANING TRIAL.
--- NOTE | 2019-05-28 05:05 | NUR ---
SEDATION VACATION ENDED SBT COMPLETE AT THIS TIME- SEE RT DOCUMENTATION. PT FOLLOWED A FEW SIMPLE COMMANDS AND NODDED HEAD YES/NO WHEN SEDATION OFF. AGITATED AND REACHING FOR ETT TUBE. CALMS DOWN SLIGHTLY WITH REASSURANCE, BUT QUICKLY BECOMES AGITATED AGAIN. RETURNED TO AC VENT SETTINGS AND PROPOFOL RESTARTED AT 50MCG/KG/MIN AT THIS TIME.
--- NOTE | 2019-05-28 06:31 | NUR ---
SHIFT SUMMARY NO ACUTE CHANGES. REMAINS INTUBATED WITH SAME VENT SETTINGS. SBT COMPLETED- SEE RT DOCUMENTATION. SEDATED WITH PROPOFOL BETWEEN 20-50MCG/KG/MIN DURING SHIFT- NOW INFUSING @ 50MCG/KG/MIN. PT OCCASIONALLY FOLLOWS SIMPLE COMMANDS AND NODS HEAD YES/NO APPROPRIATELY. BILATERAL SOFT WRIST RESTRAINTS IN PLACE. PT DOES OCCASIONALLY PULL AGAINST RESTRAINTS. MONITOR SHOWS NSR-SIT WITH PACs, RATE 90-110s. BP STABLE. AFEBRILE. OG WITH VITAL HIGH PROTEIN AT GOAL RATE OF 35CC/HR. OG RESIDUALS BETWEEN 80-110. RECTAL TUBE IN PLACE WITH LIQUID GREENISH-BROWN STOOL. GIFFORD PATENT AND DRAINING TO GRAVITY. PAS TO BLEs. REMAINS IN CONTACT ISOLATION FOR C.DIFF. WILL REPORT TO DAY SHIFT RN WHEN AVAILABLE.
--- NOTE | 2019-05-28 07:53 | NUR ---
CARE ASSUMED CARE AND REPORT ASSUMED FROM LUIS QUINTERO. PT INTUBATED ON VENT AC 16, 450, 5, FIO2 40%. PROPOFOL GTT AT 50 MCG. PT OPENS EYES TO PAINFUL STIMULI AND PULLS AGAINST RESTRAINTS, BUT IS ABLE TO CALM HIMSELF DOWN. LUNG SOUNDS COARSE WITH EXPIRATORY WHEEZES THROUGHOUT; RT NOTIFIED AND TREATMENT IN PROGRESS. AFEBRILE. NSR, HR 90S. BP WNL; MAP 100 AT THIS TIME. TF AT GOAL RATE, 35 ML/HR WITH MINIMAL RESIDUAL. BUE RESTRAINED. PT TURNED AND HOB ELEVATED. RECTAL TUBE SECURED AND PATENT. GIFFORD CATH SECURED AND PATENT. R EYE SWOLLEN AND RED; ERYTHROMYCIN OINTMENT APPLIED. WILL CONTINUE TO MONITOR.
--- NOTE | 2019-05-28 12:17 | NUR ---
REASSESSMENT PT REMAINS INTUABTED AND SEDATED. DOES AWAKEN TO PAINFUL STIMULI. PROPOFOL GTT INFUSING AT 50 MCG. TOLERATING TF AT GOAL RATE. AFEBRILE AT THIS TIME. MULTIPLE FAMILY MEMBERS HAVE BEEN UPDATED AT BEDSIDE. REMAINS IN BUE. LUNG SOUNDS IMPROVED SINCE PRIOR ASSESSMENT, BUT WHEEZES REMAIN ON L SIDE. POTASSIUM REPLACED. DRESSINGS ON WOUNDS REMAIN CLEAN AND DRY. VSS. PUPILS REMAIN REACTIVE BILAT. WILL CONTINUE TO MONITOR.
--- NOTE | 2019-05-28 16:23 | NUR ---
REASSESSMENT PT REMAINS INTUBATED AND SEDATED. VSS. LUNG SOUNDS IMPROVED SINCE PRIOR ASSESSMENT; CLEAR AT THIS TIME. CONTINUES TO TOLERATE TF AT GOAL RATE. WILL CONTINUE TO MONITOR.
--- NOTE | 2019-05-28 18:12 | NUR ---
SHIFT SUMMARY PT INTUBATED AND SEDATED DURING SHIFT. VENT REMAINS ON AC 16, 450, PEEP 5, FIO2 40%. LUNG SOUNDS IMPROVED SINCE START OF SHIFT. PT DIURESED 2600 ML URINE. POTASSIUM REPLACED THIS AM; SEE EMAR. TOLERATED TF AT GOAL RATE ENITRE SHIFT WTIH MINIMAL RESIDUALS. R PUPIL HAS REMAINED REACTIVE ENTIRE SHIFT. HOB ELEVATED AND PT TURNED Q2H. WILL GIVE BEDSIDE, HANDOFF REPORT TO NOC RN.
--- NOTE | 2019-05-28 20:50 | NUR ---
PT SEDATED AND INTUBATED WITH SETTINGS AC16/450/5/40%. SOFT BILATERAL WRIST RESTRAINTS. CAN RESPOND TO VERBAL AND NOXIOUS STIMULI. DOES NOT FOLLOW COMMANDS. PROPOFOL @ 50. OG TUBE @ 35ML/HR. GIFFORD PATENT AND DRAINING. RECTAL TUBE PATENT AND DRAINING. HEART RATE SITTING AROUND 100. NSR WITH OCCASIONAL PACs. CENTRAL LINE 8.0, 26CM @ LIP/NARES. VITALS CURRENTLY STABLE. WILL CONTINUE TO MONITOR THROUGHOUT SHIFT. SHIRLEY AVERY
--- NOTE | 2019-05-28 21:21 | NUR ---
ASSUMPTION OF CARE PT SEDATED AND INTUBATED W/SETTINGS AC16/450/5/40%. SOFT BILATERAL WRIST RESTRAINTS. PT WILL PULL ON RESTRAINTS AT TIMES. CAN RESPOND TO VERBAL AND NOXIOUS STIMULI. DOES NOT FOLLOW COMMANDS. PROPOFOL @ 50. OG TUBE @ 35LM/HR INFUSING. GIFFORD PATENT AND DRAINING. RECTAL TUBE PATENT AND DRAINING. 4 LUMEN CENTRAL LINE W/0cm EXPOSED. HR SITTING AROUND 100s. NSR W/OCCASIONAL PACs. ETT 8.0, 26cm @ LIPS/NARES. VITALS CURRENTLY STABLE. WILL CONTINUE TO MONITOR. SHIRLEY AVERY
[2019-05-29 03:46] LABS: BASOPHILS ABSOLUTE AUTO 0.04 K/mm3 (0.00-0.23); BASOPHILS PERCENT AUTO 0 % (0-2); EOSINOPHILS ABSOLUTE AUTO 0.02 K/mm3 (0.00-0.68); EOSINOPHILS PERCENT AUTO 0 % (0-6); Hematocrit 36.2 % (37.0-53.0); Hemoglobin 11.3 g/dL (13.5-17.5); IMMATURE GRAN ABSOLUTE AUTO 0.44 K/mm3 (0.00-0.10); IMMATURE GRAN PERCENT AUTO 3 % (0-1); LYMPHOCYTES ABSOLUTE AUTO 2.29 K/mm3 (0.84-5.20); LYMPHOCYTES PERCENT AUTO 15 % (21-46); MONOCYTES ABSOLUTE AUTO 0.91 K/mm3 (0.16-1.47); MONOCYTES PERCENT AUTO 6 % (4-13); Mean Corpuscular HGB 30.1 pg (26.0-34.0); Mean Corpuscular HGB Conc 31.2 g/dL (31.5-36.5); Mean Corpuscular Volume 97 fL (80-100); Mean Platelet Volume 12.2 fL (9.1-12.4); NEUTROPHILS ABSOLUTE AUTO 12.01 K/mm3 (1.96-9.15); NEUTROPHILS PERCENT AUTO 76 % (41-73); Platelet Count 175 K/mm3 (150-400); RDW Coefficient Variation 14.8 % (11.7-14.2); RDW Standard Deviation 52.5 fL (35.1-46.3); Red Blood Cell Count 3.75 M/mm3 (4.30-5.90); White Blood Cell Count 15.71 K/mm3 (4.00-11.30)
[2019-05-29 04:09] LABS: Anion Gap 6 mmol/L (6-16); Blood Urea Nitrogen 72 mg/dL (8-24); Bun/Creatinine Ratio 28.3 (12.0-20.0); CO2, Blood 37 mmol/L (21-32); Calcium, Blood 8.1 mg/dL (8.5-10.1); Chloride, Blood 102 mmol/L (98-108); Creatinine, Blood 2.54 mg/dL (0.60-1.20); Glomerular Filtration Rate 27 (60-); Glucose, Blood 188 mg/dL (70-99); Potassium, Blood 3.3 mmol/L (3.5-5.5); Sodium, Blood 145 mmol/L (136-145); Vancomycin, Random 10.5 ug/mL
--- NOTE | 2019-05-29 06:13 | NUR ---
PT ON VENT W/SETTINGS AC16/450/5/40%. SEDATED W/PROPOFOL @ 50. SOFT BILATERAL WRIST RESTRAINTS, PT WILL AT TIMES PULL ARMS UP. RHYTHM SHOWS NSR, W/OCASSIONAL SIT AND PAC. GIFFORD W/TEMP PROBE PATENT AND DRAINING YELLOW URINE W/SEDIMENT. RECTAL TUBE PATENT DRAINING BROWN/GREEN LIQUID. POTASSIUM LEVEL DROPPED TO 3.3. ORDER FOR 40MEQ KCL GIVEN, CURRENTLY INFUSING 20MEQ @ 10MEQ/HR. OG TUBE AT 8.0, 26CM AT LIPS/NARES, RUNNING @ 35cc/HR, RESIDUALS OF 40-50cc. CENTRAL LINE W/0cm EXPOSED FROM INSERTION SITE, LUMENS ARE ALL PATENT. LUNG SOUNDS MOSTLY CLEAR BILATERAL, WITH SOME HEARD BILATERALLY TOWARD END OF SHIFT. EDEMA ON BILATERAL HANDS AND FOREARMS. VITALS ARE STABLE. WILL CONTINUE TO MONITOR. SHIRLEY AVERY
--- NOTE | 2019-05-29 08:00 | NUR ---
ASSUMED CARE NOTE: ASSUMED CARE OF PT @ 0700, RECEVIED REPORT FROM JACQUELINE QUINTERO. UPON ENTERING ROOM PT IS ON THE VENT WITH SETTINGS: AC16/450/5/40% WITH SPO2 ABOVE 90%. PT SEDTADED W/ PROPOFOL @ 50MCG/KG/MIN. PT IN BILAT SWR. PT IN SINUS TACH WITH HR OF [address] WITH DARK GREEN STOOL. GIFFORD PATENT AND DRAINING YELLOW CLEAR URINE. TUBE FEEDING RUNNING AT GOAL OF 35MLS/HR. BED AT LOWEST LEVEL, WILL CONTINUE TO MONITOR PT T/O SHIFT.
--- NOTE | 2019-05-29 08:45 | NUR ---
UPDATE: DR. KWONG AT BEDSIDE. DR PLACED PT ON SPONTANEOUS VENT MODE, PT TOLERATING WELL. TUBE FEEDINGS ON PAUSE PER DR'S ORDERS. RT NOTIFIED OF CHANGES.
--- NOTE | 2019-05-29 11:05 | NUR ---
UPDATE: PT WAS EXTUBATED AT 1100. PT ON VIA NC WITH SP02 ABOVE 90%. NO S/S OF RESPRIATROY DISTRESS. PT ALERT AND FOLLOWING COMMANDS.
--- NOTE | 2019-05-29 17:44 | NUR ---
SHIFT SUMMARY: PT IS ALERT AND ORIENTED TO SELF AND FAMILY AND LOCATION. IS UNABLE TO STATE RECENT EVENTS, HOWEVER IS FOLLOWING DIRECTIONS. PT HAS BEEN HAVING THIN WATER TO DRINK NO S/S OF ASPIRATION OR DIFFICULTY SWALLOWING. SPOKE TO HOSPITALIST GI ABOUT ADVANCING DIET, AWAITING ORDERS. PT REMAINS ON 2L OF NC WITH SPO2 ABOVE 90%. PT HAS BEEN HAVING GOOD URINE OUTPUT, GIFFORD PATENT AND DRAINING YELLOW CLEAR URINE. RECTAL TUBE IN PLACE DRAINING DARK GREEN STOOL. LEFT SUBCLAVIN CENTRAL LINE DRESSING CHANGES ALONG WITH CAPS. PRECEDEX INFUSING @ 0.4MCG/KG/HR. BED AT LOWEST LEVEL, CALL LIGHT WITHIN REACH. WILL CONTINUE TO MONITOR UNTIL REPORT IS GIVEN TO ONCOMING SHIFT
[2019-05-30 03:19] LABS: BASOPHILS ABSOLUTE AUTO 0.02 K/mm3 (0.00-0.23); BASOPHILS PERCENT AUTO 0 % (0-2); EOSINOPHILS ABSOLUTE AUTO 0.09 K/mm3 (0.00-0.68); EOSINOPHILS PERCENT AUTO 1 % (0-6); Hemoglobin 11.9 g/dL (13.5-17.5); IMMATURE GRAN ABSOLUTE AUTO 0.51 K/mm3 (0.00-0.10); IMMATURE GRAN PERCENT AUTO 3 % (0-1); LYMPHOCYTES ABSOLUTE AUTO 2.98 K/mm3 (0.84-5.20); LYMPHOCYTES PERCENT AUTO 20 % (21-46); MONOCYTES ABSOLUTE AUTO 0.88 K/mm3 (0.16-1.47); MONOCYTES PERCENT AUTO 6 % (4-13); Mean Corpuscular HGB 30.8 pg (26.0-34.0); Mean Corpuscular HGB Conc 32.2 g/dL (31.5-36.5); Mean Corpuscular Volume 96 fL (80-100); Mean Platelet Volume 12.2 fL (9.1-12.4); NEUTROPHILS ABSOLUTE AUTO 10.69 K/mm3 (1.96-9.15); NEUTROPHILS PERCENT AUTO 71 % (41-73); Platelet Count 181 K/mm3 (150-400); RDW Coefficient Variation 14.6 % (11.7-14.2); RDW Standard Deviation 51.8 fL (35.1-46.3); Red Blood Cell Count 3.86 M/mm3 (4.30-5.90); White Blood Cell Count 15.17 K/mm3 (4.00-11.30)
[2019-05-30 03:41] LABS: Bun/Creatinine Ratio 36.4 (12.0-20.0); Calcium, Blood 8.1 mg/dL (8.5-10.1); Creatinine, Blood 2.09 mg/dL (0.60-1.20); Potassium, Blood 3.8 mmol/L (3.5-5.5)
--- NOTE | 2019-05-30 06:05 | NUR ---
SHIFT SUMMARY PT A&O TO PERSON, PLACE. FOLLOWS DIRECTIONS. PT EXTUBATED IN AFTERNOON, ON 2L NC AT BEGINNING OF SHIFT SATS AT 98%. PT TOLERATED 1L NC WHILE KEEPING SAT 92% OR HIGHER. COUGHS INTERMITTENTLY, OCCASIONALLY PRODUCTIVE. PT SWALLOWS SPUTUM. PT HAS BEEN VERY THIRSTY ALL NIGHT, WIHT REPEATED REQUESTS FOR WATER/PO FLUIDS. LUNG SOUNDS EXPIRATORY WHEEZES ON BILATERALLY WITH DIMINISHED SOUNDS IN LOWER LOBES. GIFFORD IN PLACE, PATENT AND FLOWING. URINE SEPIDEH AND CLEAR. MODERATE DISTENTION IN ABDOMEN, HYPERACTIVE BOWEL SOUNDS. PATIENT HAS RECTAL TUBE IN PLACE WITH 300ML OUT THIS SHIFT. BM IS BROWN AND LIQUID. PRECEDEX RUNNING AT 0.4. L SUBCLAVIAN CL IN PLACE AND INFUSING. R HAND COVERED WITH HYDROGEL. R EYE SWOLLEN. R EYE BURN. SCAR ON R INNER THIGH. POTATSSIUM 3.8 THIS AM. NO REPLACEMENT NECESSARY. VSS. WILL CONTINUE TO MONITOR UNTIL REPORT GIVEN TO ONCOMING NURSE.
--- NOTE | 2019-05-30 08:00 | NUR ---
ASSUMED CARE NOTE: ASSUMED CARE OF PT @ 0700, RECEVIED REPORT FROM MARBIN QUINTERO. PT ALERT AND ORIENTED TO SELF AND FAMILY. PT IS ABLE TO FOLLOW DIRECTIONS. PT IS C/O THIRST, HOWEVER DENIES ANY SORE/PAIN IN THROAT. PT CAN SWALLOW W/O DIFFICULTY, HOWEVER NEEDS ASSISTANCE WITH FEEDING DUE TO WEAKNESS. PT IS ON 2L OF NC WITH SPO2 ABOVE 90%. SUBCLAVIN CENTRAL CATH RESECURED, PRECEDEX INFUSING @ 0.04MCG/KG/HR. GIFFORD IN PLACE DRAINING YELLOW CLEAR URINE. RECTAL TUBE DRANING DARK GREEN/BROWN STOOL. WILL CONTINUE TO MONITOR PT T/O SHIFT.
--- NOTE | 2019-05-30 11:14 | NUR ---
UPDATE: PRECEDEX OFF. RECTAL TUBE IS OUT. BLOOD PRESSURE RISING. SPOKE TO TO CONTINUE HOME BP MEDS, AWAITING ORDERS. TWO NEW PERIPHERAL LINES IN PLACE, WILL DC SUBCLAVIAN LINE SHORTLY. CALLED TO ASK IF SHE COULD BRING PT'S CPAP, STATES THAT HE HAS NOT BEEN WORN IT IN YEARS. WILL CONTINUE TO MONITOR.
--- NOTE | 2019-05-30 17:03 | NUR ---
SHIFT SUMMARY: PT REMAINS ON 2L OF NC WITH SPO2 ABOVE 90%. PT REQUIRED ONE PRN NEBULIZER TREATMENT FOR INCREASED WORK OF BREATHING. CPAP WAS PLACED ON PT WHILE REST. PT WAS HYPERTENSIVE WITH SBP @ 180, AWARE NEW ORDERS WERE GIVEN. PT WAS ABLE TO EAT SOFT FOODS WITH ASSISTANCE, PT HAS TO BE CUED TO TUCK CHIN TO HELP WITH SWALLOWING, NO DIFFICULTIES NOTED. PT HAS MCCARTY MODERATE SPUTUM. PT RECEVIED ORAL CARE T/O SHIFT. PT HAS BEEN IN NSR WITH OCCASIONAL PVC'S HR BETWEEN 70-80 BPM. NO CHEST PAIN REPORTED. GIFFORD PATENT AND DRAINING SEPIDEH COLORED URINE. SUBCLAVIAN LINE REMOVED AND DRESSED WITH OIL EMULSION DRESSING. POWERGLIDE TO RIGHT AC WAS PLACED , ALONG WITH A 18G TO THE RIGHT FORARM BOTH SALINE LOCKED. PT CHANGED TO PCU STATUS, AWAITING BED ASSIGNMENT.
--- NOTE | 2019-05-30 17:51 | NUR ---
UPDATE NOTE: SPOKE TO REGARDING HYPERTENSION, NEW ORDERS WERE GIVEN. PT IS NOW ON THE CPAP DUE TO INCREASED WORK OF BREATHING, SPO2 @ 94%.
--- NOTE | 2019-05-30 18:40 | NUR ---
UPDATE: PT IS NOW DIAPHORETIC AND DYSPNEIC. PT ON CPAP SPO2 ABOVE 90%. PT WAS GIVEN 5MG OF NORVASC AROUND 1800, NO EFFECT ON BP, PT CONTINUES TO BE HYPERTENSIVE. CALLED DR. ALVAREZ FOR POSSIBLE BIPAP AND PRN ANTIHYPERTENSIVE, NO ANSWER LEFT CALLBACK NUMBER.
--- NOTE | 2019-05-30 20:10 | NUR ---
INITIAL ASSESSMENT PATIENT ALERT AND ORIENTED X 4, AFEBRILE. R EYE RED/ INFLAMED/ CRUSTY. PATIENT DENIES PAIN OR DISCOMFORT. PATIENT SATTING 90% AND GREATER ON EITHER CPAP OR 2 L NC WHEN AWAKE. LUNG SOUNDS COARSE THROUGHOUT. SOB WITH EXERTION. PATIENT COUGHING UP MODERATE AMOUNT OF THICK, HOLGUIN/ YELLOW SPUTUM. PATIENT IN SB, HR IN THE 50S. SBP IN THE 160S. PRN HYDRALAZINE GIVEN. TRACE EDEMA NOTED TO EXTREMITIES. SCDS IN PLACE. ABDOMEN MODERATELY DISTENDED, SOFT, WITH NORMOACTIVE BS. LAST BM DOCUMENTED TODAY. IGFFORD DRAINING DARK YELLOW URINE. DRESSING C/D/I TO BURN ON R WRIST. BRUISES AND SCABS SCATTERED TO BUES. DRESSING C/D/I TO SKIN TEAR ON L FA. IVS FLUSHED AND SALINE LOCKED. BED LOW, CALL LIGHT IN REACH. WILL CONTINUE TO MONITOR PATIENT FREQUENTLY THROUGHOUT SHIFT.
--- NOTE | 2019-05-30 20:30 | NUR ---
PRN HYDRALAZINE BROUGHT SBP DOWN FROM 160S TO 140S. WILL CONTINUE TO MONITOR.
--- NOTE | 2019-05-31 00:14 | NUR ---
PATIENT AFEBRILE. PATIENT IN SR WITH HR IN THE 60S. SBP IN THE 160S. PATIENT SWITCHED FROM CPAP TO NC AT 2 L CONTINUES TO COMPLAIN AND NOT TOLERATE CPAP. PATIENT REFUSES TO WEAR CPAP AT HOME WELL. PATIENT HAS NO COMPLAINTS OF PAIN. NO OTHER ACUTE CHANGES TO NOTE ON AT THIS TIME. WILL CONTINUE TO MONITOR.
[2019-05-31 04:25] LABS: BASOPHILS ABSOLUTE AUTO 0.06 K/mm3 (0.00-0.23); BASOPHILS PERCENT AUTO 0 % (0-2); EOSINOPHILS ABSOLUTE AUTO 0.23 K/mm3 (0.00-0.68); EOSINOPHILS PERCENT AUTO 1 % (0-6); Hematocrit 41.9 % (37.0-53.0); Hemoglobin 13.4 g/dL (13.5-17.5); IMMATURE GRAN ABSOLUTE AUTO 0.94 K/mm3 (0.00-0.10); IMMATURE GRAN PERCENT AUTO 6 % (0-1); LYMPHOCYTES ABSOLUTE AUTO 2.99 K/mm3 (0.84-5.20); LYMPHOCYTES PERCENT AUTO 18 % (21-46); MONOCYTES ABSOLUTE AUTO 0.99 K/mm3 (0.16-1.47); MONOCYTES PERCENT AUTO 6 % (4-13); Mean Corpuscular HGB 30.4 pg (26.0-34.0); Mean Corpuscular Volume 95 fL (80-100); Mean Platelet Volume 11.5 fL (9.1-12.4); NEUTROPHILS ABSOLUTE AUTO 11.61 K/mm3 (1.96-9.15); NEUTROPHILS PERCENT AUTO 69 % (41-73); Platelet Count 233 K/mm3 (150-400); RDW Coefficient Variation 14.2 % (11.7-14.2); RDW Standard Deviation 49.2 fL (35.1-46.3); Red Blood Cell Count 4.41 M/mm3 (4.30-5.90); White Blood Cell Count 16.82 K/mm3 (4.00-11.30)
--- NOTE | 2019-05-31 04:25 | NUR ---
PATIENT CONTINUALLY CALLING OUT FOR WATER. PATIENT AGITATED. PATIENT AFEBRILE. PATIENT SATTING 90% AND GREATER ON 2 L NC. PATIENT IN SR WITH PACS, HR IN THE 70S. SBP IN THE 170S. DR. BAUTISTA CALLED AND INFORMED OF ELEVATED SBP AND THAT PRN HYDRALAZINE IS NOT ABLE TO BE GIVEN AGAIN AT THIS TIME. ORDERED FOR 10 MG MORE OF HYDRALAZINE AND IF DOES NOT BRING DOWN "THEN JUST LEAVE IT". PATIENT GIVEN PRN HALDOL TO HELP WITH AGITATION. NO OTHER ACUTE CHANGES TO NOTE ON AT THIS TIME. WILL CONTINUE TO MONITOR.
[2019-05-31 04:40] LABS: Bun/Creatinine Ratio 37.4 (12.0-20.0); Calcium, Blood 8.7 mg/dL (8.5-10.1); Creatinine, Blood 1.63 mg/dL (0.60-1.20); Potassium, Blood 3.9 mmol/L (3.5-5.5)
[2019-05-31 04:42] LABS: BASOPHILS PERCENT MAN 0 % (0-2); EOSINOPHILS PERCENT MAN 3 % (0-6); LYMPHOCYTES ABSOLUTE MAN 3.02 K/mm3 (0.84-5.20); LYMPHOCYTES PERCENT MAN 18 % (21-46); METAMYELOCYTE ABSOLUTE MAN 0.16 K/mm3 (0.00-0.00); METAMYELOCYTE PERCENT MAN 1 % (0-0); MONOCYTES ABSOLUTE MAN 1.34 K/mm3 (0.16-1.47); MONOCYTES PERCENT MAN 8 % (4-13); MYELOCYTE ABSOLUTE MAN 0.16 K/mm3 (0.00-0.00); MYELOCYTE PERCENT MAN 1 % (0-0); SEG NEUTROPHILS PERCENT MAN 69 % (41-73); TOTAL CELLS COUNTED 100
--- NOTE | 2019-05-31 05:31 | NUR ---
SHIFT SUMMARY PATIENT ALERT AND ORIENTED T/O SHIFT. HOWEVER, PATIENT DID BECOME AGITATED AND CALLING OUT MOST OF THE NIGHT FOR WATER AND FOR "NURSE". PATIENT INFORMED THAT NURSE CANNOT STAY IN ROOM WITH HIM ALL NIGHT. PATIENT WOULD STATE THAT HE WOULD TRY TO SLEEP AND UPON NURSE EXITING THEN HE WOULD START YELLING AND CALLING OUT AGAIN. PATIENT GIVEN PRN ATIVAN AND HALDOL. PATIENT SEEMS LIKE MAY FINALLY BE STARTING TO CALM DOWN AT THIS TIME HAS NOT CALLED OUT IN ABOUT 10 TO 15 MINUTES. PATIENT REMAINED AFEBRILE. PATIENT HAD NO COMPLAINTS OF PAIN. PATIENT LUNGS REMAINED MOSTLY COARSE AND DID HAVE SOME WHEEZING. PATIENT ON CPAP AT BEGINNING OF NIGHT, CHANGED TO 2 L NC AND IS NOW BACK ON CPAP AFTER FEELING SOB FROM MOVING AROUND IN BED SO MUCH. PATIENT REMAINED SB TO SR WITH OCCASIONAL PACS. HR RANGED FROM 50S TO 70S. SBP RANGED FROM 140S TO 170S. PRN HYDRALAZINE GIVEN 3 TIMES THIS SHIFT. PATIENT HAD TWO SMALL, LIQUID, BROWN, INCONTINENT BMS THIS SHIFT. PATIENT ASKED WHY HE DOES NOT CALL WHEN NEEDS TO GO AND STATES THAT HE DOES NOT FEEL WHEN HE IS HAVING A BM. GIFFORD DRAINED ADEQUATE AMOUNT OF DARK YELLOW URINE. PATIENT DRANK WATER WELL THROUGHOUT THE NIGHT. NURSE ENCOURAGING PATIENT TO PERFORM SELF ADLS, ETC TO HELP PATIENT GAIN STRENGTH. NO CHANGE TO SKIN. PATIENT IS NOW HELPING TO REPOSITION SELF. IVS REMAIN SALINE LOCKED. BED LOW, CALL LIGHT IN REACH. WILL BE GIVING REPORT TO ONCOMING AM NURSE SHORTLY.
--- NOTE | 2019-05-31 07:25 | NUR ---
ASSUMED CARE RECIEVED REPORT FROM INGRID SMITH. PT IS ALSEEP WITH CPAP ON, SAT'ING IN THE 90'S. HE HAS SCD'S ON, A PATENT AND DRAINING GIFFORD CATH, AND IS ON CONTACT PRECAUTIONS FOR CDIFF. BED IS LOW AND LOCKED. PLAN IS TO LET PT SLEEP IN, AND GIVE MEDS A LITTLE LATE DUE TO HIM BEING AWAKE ALL NIGHT, WITH AGITATION, ANXIETY AND CONFUSION. HE HAD JUST FALLEN ASLEEP 30M-1H PRIOR TO ME GETTING REPORT FROM NIGHT RN.
--- NOTE | 2019-05-31 19:17 | NUR ---
SHIFT SUMMARY PT IS A & O X 3-4; STILL NOT COMPLETELY SURE WHAT EXACTLY HAPPENED TO HIM. HE WAS IN GOOD SPIRITS TODAY, NOT SUPER MOTIVATED TO GET STRONGER, BUT HE IS TRYING. HIS MAIN ISSUE IS HIS WEAKNESS; PT/OT WILL BE VERY BENEFICIAL TO HIM. HIS RIGHT EYE IS VERY SWOLLEN, WBC'S BUMPED UP TODAY, BUT THE EYE IS IMPROVING AND HE REMAINS AFEBRILE. PT DENIES PAIN/DISCOMFORT ASIDE HIS DRY THROAT. IS ON ROOM AIR 2 L NC, SATING 94%. HE IS IN SINUS RHYTHM TO SINUS ALEJANDRA; 55-65. BLOOD PRESSURE IS ELEVATED BUT IMPROVED AFTER MORNING BP MEDS. PT HAD ONE SOFT DARK BROWN BM, MEDIUM SIZED. HE HAS NORMAL ACTIVE BT'S. FIRM DISTENDED ABDOMEN, PT STATES NORMAL. PT HAD GREAT URINE OUTPUT AND IMPROVING RENAL LABS. 2150ML OF URINE OUTPUT OVER TODAY. BED LOW AND LOCKED. CALL LIGHT WITHIN REACH.
--- NOTE | 2019-06-01 07:23 | NUR ---
SHIFT SUMMARY PATIET A&O. INCREASING STRENGTH AND ROM EXERCISE ON HIS OWN, MOTIVATED TO GO HOME. PT STARTED SHIFT AT 1L NC, NOW ON RA WITH SATS ABOVE 94%. BILATERAL WRIST DRESSING CHANGES DONE, SILVER SULFADINE ADDED TO WHITLEY. ONE BM OVERNIGHT. LUNGS COARSE WITH DIMINISHED BASES. WILL CONTINUE TO MONITOR UNTIL ONCOMING NURSE.
--- NOTE | 2019-06-01 08:55 | NUR ---
CARE ASSUMED CARE AND REPORT ASSUMED FROM RONEN QUINTERO. PT SITTING UP IN BED. HAD SOFT BM THIS AM. SPO2 90% ON RA AND WAS HAVING SOME DYPSNEA AFTER EXERTION. 2L NC APPLIED TO NARES AND SPO2 NOW 96%. LUNG SOUNDS HAVE EXP WHEEZING AND DIM IN BASES. NSR, HR 70S. BP STABLE. TOLERATED EATING AND TAKING PILLS WITH NO PROBLEM. AFEBRILE. A/O X3. WILL CONTINUE TO MONITOR.
--- NOTE | 2019-06-01 12:27 | NUR ---
REASSESSMENT PT CONTINUES TO SIT IN RECLINER CHAIR. VISITING WITH AT THIS TIME. VSS. WILL CONTINUE TO MONITOR.
--- NOTE | 2019-06-01 18:37 | NUR ---
SHIFT SUMMARY PT IN RECLINER CHAIR MOST OF AFTERNOON. IS ABLE TO STAND WITH MINIMAL ASSIST. HAD MULTIPLE VISITORS THROUGHOUT DAY. VSS ENTIRE SHIFT. BP 140S-150S SYSTOLIC. GIFFORD CATHETER REMOVED. WORKED WITH OT AND PT. PT A/O X 3, FOLLOWING DIRECTIONS APPROPRIATELY. STATES HE CAN SEE OUT OF R EYE; ANTIBIOTIC OINTMENT APPLIED PER MAR. WILL GIVE BEDSIDE, HANDOFF REPORT TO ALANA QUINTERO.
--- NOTE | 2019-06-01 23:28 | NUR ---
PT ADMITTED TO FLOOR FROM THE UNIT EARLIER. ALERT AND ORIENTED. UP WITH ASSIST, INSTRUCTED TO USE CALL LIGHT BEFORE HE GOT UP FOR ASSISTANCE. VERBALIZED UNDERSTANDING, NOISE HEARD FROM ROOM, NOTED PT SITTING ON FLOOR, SMILING. STATED HE WAS LOOKING FOR HIS URINAL, AND SAT ON HIS CHAIR FOOTREST AND SLID TO THE FLOOR. VSS. ASYMPTOMATIC. DENIED PAIN AND LOSSOF FEELING IN BODY. NO NOTED CHANGE IN SKIN SINCE HE WAS ADMITTED EARLIER. CALL LIGHT IN REACH. MD NOTIFIED. PLACED ON FALL PRECAUTIONS. BED ALARM ON
[2019-06-02 04:50] LABS: BASOPHILS ABSOLUTE AUTO 0.06 K/mm3 (0.00-0.23); BASOPHILS PERCENT AUTO 0 % (0-2); EOSINOPHILS ABSOLUTE AUTO 0.13 K/mm3 (0.00-0.68); EOSINOPHILS PERCENT AUTO 1 % (0-6); Hematocrit 44.6 % (37.0-53.0); Hemoglobin 14.2 g/dL (13.5-17.5); IMMATURE GRAN ABSOLUTE AUTO 0.49 K/mm3 (0.00-0.10); IMMATURE GRAN PERCENT AUTO 3 % (0-1); LYMPHOCYTES ABSOLUTE AUTO 3.87 K/mm3 (0.84-5.20); LYMPHOCYTES PERCENT AUTO 23 % (21-46); MONOCYTES ABSOLUTE AUTO 1.37 K/mm3 (0.16-1.47); MONOCYTES PERCENT AUTO 8 % (4-13); Mean Corpuscular HGB 30.2 pg (26.0-34.0); Mean Corpuscular HGB Conc 31.8 g/dL (31.5-36.5); Mean Corpuscular Volume 95 fL (80-100); Mean Platelet Volume 11.3 fL (9.1-12.4); NEUTROPHILS ABSOLUTE AUTO 10.74 K/mm3 (1.96-9.15); NEUTROPHILS PERCENT AUTO 65 % (41-73); Platelet Count 373 K/mm3 (150-400); RDW Coefficient Variation 14.2 % (11.7-14.2); RDW Standard Deviation 50.1 fL (35.1-46.3); White Blood Cell Count 16.66 K/mm3 (4.00-11.30)
[2019-06-02 05:07] LABS: Bun/Creatinine Ratio 31.8 (12.0-20.0); Creatinine, Blood 1.57 mg/dL (0.60-1.20); Potassium, Blood 4.2 mmol/L (3.5-5.5)
--- NOTE | 2019-06-02 06:42 | NUR ---
Pt received from the unit earlier in the shift. Fall teaching and call use given, but pt sat on wrong part of the chair and slid to the floor. No injury noted. Pt Laughed and cussed at chair. Assisted to bed. Bed alarm placed on. C-Diff precautions maintained. Call light in reach. Instructed not to get out of bed unless staff near by.
--- NOTE | 2019-06-02 18:19 | NUR ---
PT IS A/OX3, PLEASANT AND COOPERATIVE, THE PT IS UP WITH MINIMAL ASSIST, THE PT WORKED WITH THE PHYSICAL AND OCCUPATIONAL THERAPIST TODAY AND TOLERATED WELL, THE PT IS STILL A LITTLE UNSTEADY ON HIS FEET, THE PT APPEARED TO BE BREATHING EASILY ON RA T/O THE DAY, THE PT DENIED ANY PAIN, CALL LIGHT IN REACH, WILL CONTINUE TO MONITOR AND ASSESS FOR CHANGES
--- NOTE | 2019-06-02 21:39 | NUR ---
HS BLOOD SUGAR 460, RECEIVED 18 UNITS HUMALOG AND MD BILLING ADJUDICATOR NOTIDFIED PER MD ORDES. PLACED ON ADA DIET AND TO MONITOR
--- NOTE | 2019-06-03 02:19 | NUR ---
Awake at inervals, denied loose stools. Up ad ilene and steady gait. Contact precautions maintained. Respiratory treatments per RT - see AUG. Stated he wants to go home soon. Call light in reach.
--- NOTE | 2019-06-03 09:40 | NUR ---
PT PLEASANT COOP A/O. SOMEWHAT BOISTEROUS. STATES GOING HOME TODAY. H/R REG, NO MUKRME NOTED. PER TELE: NSR AT 67. LUNGS COARSE AND WHEEZY IN BASES. ON R/A. RESP EASY, UNLABORED. BT X4 LAST BM TODAY. LOOSE. WILL HOLD COLACE. VOIDS INDEPENDANT TO BATHROOM. BED IN LOW POSITION, CALL LITE IN REACH, CALLS APPROP
[2019-06-03] MEDS ORDERED: ACET325 PO (15:10)
[2019-06-03] MEDS ORDERED: ERYT1OIN TOP (15:11)
[2019-06-03] MEDS ORDERED: Vsl#3 Capsule1 EACH PO (15:16)
[2019-06-03] MEDS ORDERED: BUDE6HFA INH (15:17)
[2019-06-03] MEDS ORDERED: CEPH500 PO (15:18)
--- NOTE | 2019-06-03 16:40 | NUR ---
discharge reviewed jocelyneith pt and spouse. iv x2 pulled intact. tele removed. pt verbalized understanding of meds and instructions. pt wheeled to door by me. at 1600
== END 2019-06-03 15:55 | disposition home health service (06) | DRG 870 ==
LOC: ER 13:18 → ICUW 15:18 → ICUE 15:18 → MEDS 06-01 21:04
PROVIDERS: Emergency Medicine; Family Medicine; Internal Medicine Critical Care Medicine; ADMIT Family Medicine
PROC: 0BH17EZ Insertion of Endotracheal Airway into Trachea, Via Natural or Artificial Opening (ICD-10-PCS; principal; 2019-05-24)
PROC: 5A1955Z Respiratory Ventilation, Greater than 96 Consecutive Hours (ICD-10-PCS; 2019-05-24)
PROC: 02HV33Z Insertion of Infusion Device into Superior Vena Cava, Percutaneous Approach (ICD-10-PCS; 2019-05-24)
DX: A40.0 Sepsis due to streptococcus, group A (principal); R65.21 Severe sepsis with septic shock; J96.01 Acute respiratory failure with hypoxia; G92 Toxic encephalopathy; J18.9 Pneumonia, unspecified organism; J44.1 Chronic obstructive pulmonary disease with (acute) exacerbation; N17.9 Acute kidney failure, unspecified; E87.2 Acidosis; A04.72 Enterocolitis due to Clostridium difficile, not specified as recurrent; E27.3 Drug-induced adrenocortical insufficiency; L03.213 Periorbital cellulitis; E87.6 Hypokalemia; T38.0X5A Adverse effect of glucocorticoids and synthetic analogues, initial encounter; E11.22 Type 2 diabetes mellitus with diabetic chronic kidney disease; I12.9 Hypertensive chronic kidney disease with stage 1 through stage 4 chronic kidney disease, or unspecified chronic kidney disease; N18.3 Chronic kidney disease, stage 3 (moderate); F17.210 Nicotine dependence, cigarettes, uncomplicated; G47.33 Obstructive sleep apnea (adult) (pediatric)
CPT/HCPCS: 0097U; 31500; 31720; 36415; 36556; 36600; 51702; 70470; 70481; 71045; 71046; 80048; 80053; 80202; 81001; 82375; 82803; 82947; 83605; 83735; 84100; 84484; 85025; 85610; 85730; 87040; 87070; 87086; 87147; 87205; 87252; 87254; 87324; 87804; 93005; 93010; 94002; 94003; 94640; 94644; 94660; 94760; 96365-59; 96367-59; 97110; 97116; 97162; 97166; 97530; 99291-25; C1751; C9113; G0480; J0330; J0360; J0610; J0692; J0696; J1630; J1644; J1650; J1720; J1815; J1940; J2250; J2704; J2920; J3010; J3370; J3480; J7030; J7040; J7050; J7060; J7070; J7512; J7799; P9046; Q9967

== ENCOUNTER 2019-06-26 10:47 | Emergency (ER) | payer MEDICARE ==
[~2019-06-26] VITALS: Ht 182.9 cm; Wt 113.4 kg
[~2019-06-26 10:47] MED LIST changes: +ACET325 PO; +AMLODIPINE BES2.5 MG PO; +BUDE6HFA INH; +CEPH500 PO; +ERYT1OIN TOP; +Vsl#3 Capsule1 EACH PO
[2019-06-26 12:00] LABS: BASOPHILS ABSOLUTE AUTO 0.07 K/mm3 (0.00-0.23); BASOPHILS PERCENT AUTO 0 % (0-2); EOSINOPHILS PERCENT AUTO 0 % (0-6); Hematocrit 38.2 % (37.0-53.0); Hemoglobin 12.3 g/dL (13.5-17.5); IMMATURE GRAN ABSOLUTE AUTO 0.57 K/mm3 (0.00-0.10); IMMATURE GRAN PERCENT AUTO 3 % (0-1); LYMPHOCYTES ABSOLUTE AUTO 1.88 K/mm3 (0.84-5.20); LYMPHOCYTES PERCENT AUTO 9 % (21-46); MONOCYTES ABSOLUTE AUTO 1.34 K/mm3 (0.16-1.47); MONOCYTES PERCENT AUTO 6 % (4-13); Mean Corpuscular HGB 29.9 pg (26.0-34.0); Mean Corpuscular HGB Conc 32.2 g/dL (31.5-36.5); Mean Corpuscular Volume 93 fL (80-100); Mean Platelet Volume 10.4 fL (9.1-12.4); NEUTROPHILS ABSOLUTE AUTO 17.87 K/mm3 (1.96-9.15); NEUTROPHILS PERCENT AUTO 82 % (41-73); Platelet Count 320 K/mm3 (150-400); RDW Coefficient Variation 14.4 % (11.7-14.2); RDW Standard Deviation 49.1 fL (35.1-46.3); Red Blood Cell Count 4.12 M/mm3 (4.30-5.90); White Blood Cell Count 21.73 K/mm3 (4.00-11.30)
[2019-06-26 12:17] LABS: Anion Gap 12 mmol/L (6-16); Blood Urea Nitrogen 28 mg/dL (8-24); Bun/Creatinine Ratio 16.3 (12.0-20.0); CO2, Blood 22 mmol/L (21-32); Calcium, Blood 9.1 mg/dL (8.5-10.1); Chloride, Blood 102 mmol/L (98-108); Creatinine, Blood 1.72 mg/dL (0.60-1.20); Glomerular Filtration Rate 43 (60-); Glucose, Blood 183 mg/dL (70-99); Potassium, Blood 4.4 mmol/L (3.5-5.5); Sodium, Blood 136 mmol/L (136-145); Troponin I <0.015 ng/mL (0.000-0.040)
[2019-06-26 12:33] LABS: Influenza A Negative (NEGATIVE); Influenza B Negative (NEGATIVE)
[2019-06-26] MEDS ORDERED: GLIM2 PO (12:36)
[2019-06-26] MEDS ORDERED: ALBU3IS INH (12:37)
[2019-06-26] MEDS ORDERED: Prednisone10 MG PO (12:38)
[2019-06-26] MEDS ORDERED: AMLO10 PO (12:39)
[2019-06-26] MEDS ORDERED: ALBU90OI INH (12:40)
[2019-06-26 13:29] LABS: Source, Urine Clean Catch
[2019-06-26 13:32] LABS: Bilirubin, Urine Neg (Neg); Blood, Urine Neg (Neg); Glucose Qualitative, Urine 2+ (Neg); Ketones, Urine 1+ (Neg); Leukocyte Esterase, Urine Neg (Neg); Nitrite, Urine Neg (Neg); Protein, Urine 2+ (Neg); Specific Gravity, Urine 1.025 (1.003-1.022); Urobilinogen, Urine NORM (Normal)
[2019-06-26 13:50] LABS: Appearance, Urine Clear (Clear); Color, Urine Yellow (P-Yellow)
[2019-06-26 13:51] LABS: Hyaline Casts 0-2 /lpf (0-2)
[2019-06-26 13:52] LABS: Bacteria Rare /hpf; Red Blood Cells, Urine 0-2 /hpf (0-2); Squamous Epithelial Cells Not Seen /hpf (Few); White Blood Cells, Urine 0-2 /hpf (0-5)
[2019-06-26] MEDS ORDERED: BROVANA15 MCG/2 M NEB (13:56)
[2019-06-26] MEDS ORDERED: Zithromax250 MG PO (14:55)
[2019-06-26] MEDS ORDERED: Prednisone20 MG PO (14:55)
== END 2019-06-26 15:01 | disposition home or self-care (01) ==
LOC: ER 10:47
PROVIDERS: Emergency Medicine
DX: J44.0 Chronic obstructive pulmonary disease with (acute) lower respiratory infection (principal); J20.9 Acute bronchitis, unspecified; J44.1 Chronic obstructive pulmonary disease with (acute) exacerbation; I10 Essential (primary) hypertension; E11.9 Type 2 diabetes mellitus without complications; G47.33 Obstructive sleep apnea (adult) (pediatric); Z88.0 Allergy status to penicillin; Z88.8 Allergy status to other drugs, medicaments and biological substances; Z79.899 Other long term (current) drug therapy; Z79.51 Long term (current) use of inhaled steroids; Z87.891 Personal history of nicotine dependence
CPT/HCPCS: 36415; 71046; 80048; 81001; 83605; 84484; 85025; 86308; 87040; 87804; 93005; 93010; 94644; 96365; 96367; 96375; 99284-25; J0456; J0696; J2930; J7030; J7050

== ENCOUNTER 2019-08-13 13:07 | Inpatient (IN) | payer MEDICARE ==
[~2019-08-13] VITALS: Ht 180.3 cm; Wt 121.2 kg
[~2019-08-13 13:07] MED LIST changes: +ALBU3IS INH; +ALBU90OI INH; +AMLO10 PO; +BROVANA15 MCG/2 M INH; +GLIM2 PO; +Prednisone10 MG PO; +Prednisone20 MG PO; +Zithromax250 MG PO
[2019-08-13 14:29] LABS: BASOPHILS ABSOLUTE AUTO 0.09 K/mm3 (0.00-0.23); BASOPHILS PERCENT AUTO 0 % (0-2); EOSINOPHILS ABSOLUTE AUTO 0.01 K/mm3 (0.00-0.68); EOSINOPHILS PERCENT AUTO 0 % (0-6); Hematocrit 47.4 % (37.0-53.0); Hemoglobin 15.3 g/dL (13.5-17.5); IMMATURE GRAN ABSOLUTE AUTO 0.19 K/mm3 (0.00-0.10); IMMATURE GRAN PERCENT AUTO 1 % (0-1); LYMPHOCYTES ABSOLUTE AUTO 1.38 K/mm3 (0.84-5.20); LYMPHOCYTES PERCENT AUTO 6 % (21-46); MONOCYTES ABSOLUTE AUTO 1.73 K/mm3 (0.16-1.47); MONOCYTES PERCENT AUTO 7 % (4-13); Mean Corpuscular HGB 30.2 pg (26.0-34.0); Mean Corpuscular HGB Conc 32.3 g/dL (31.5-36.5); Mean Corpuscular Volume 94 fL (80-100); Mean Platelet Volume 9.7 fL (9.1-12.4); NEUTROPHILS PERCENT AUTO 86 % (41-73); Platelet Count 305 K/mm3 (150-400); RDW Coefficient Variation 15.3 % (11.7-14.2); RDW Standard Deviation 52.9 fL (35.1-46.3); Red Blood Cell Count 5.07 M/mm3 (4.30-5.90)
[2019-08-13 14:57] LABS: Alanine Aminotransfer (ALT/SGP 19 U/L (12-78); Albumin, Blood 3.5 g/dL (3.4-5.0); Albumin/Globulin Ratio 0.8 (0.8-1.8); Alk Phos 70 U/L (50-136); Anion Gap 10 mmol/L (6-16); Aspartate Aminotrans (AST/SGOT 15 U/L (12-37); Bilirubin, Total 1.3 mg/dL (0.1-1.0); Blood Urea Nitrogen 31 mg/dL (8-24); Bun/Creatinine Ratio 11.3 (12.0-20.0); CO2, Blood 20 mmol/L (21-32); Calcium, Blood 9.3 mg/dL (8.5-10.1); Chloride, Blood 96 mmol/L (98-108); Creatinine, Blood 2.74 mg/dL (0.60-1.20); Globulin, Blood 4.4 g/dL (2.2-4.0); Glomerular Filtration Rate 25 (60-); Glucose, Blood 177 mg/dL (70-99); Potassium, Blood 4.7 mmol/L (3.5-5.5); Sodium, Blood 126 mmol/L (136-145); Total Protein, Blood 7.9 g/dL (6.4-8.2); Troponin I <0.015 ng/mL (0.000-0.040)
[2019-08-13] MEDS ORDERED: AMLODIPINE BES2.5 MG PO (19:29)
[2019-08-13] MEDS ORDERED: Duoneb 2.5-0.5 M3 ML INH (19:31)
[2019-08-13] MEDS ORDERED: Ramipril10 MG PO (19:32)
[2019-08-14 03:08] LABS: Adenovirus Not Detected (NOT DETECT); Bordetella pertussis Not Detected (NOT DETECT); Chlamydophila pneumoniae Not Detected (NOT DETECT); Coronavirus 229E Not Detected (NOT DETECT); Coronavirus HKU1 Not Detected (NOT DETECT); Coronavirus NL63 Not Detected (NOT DETECT); Coronavirus OC43 Not Detected (NOT DETECT); Human Metapneumovirus Not Detected (NOT DETECT); Human Rhinovirus/Enterovirus Not Detected (NOT DETECT); Influenza A Not Detected (NOT DETECT); Influenza A/2009-H1 Not Detected (NOT DETECT); Influenza A/H1 Not Detected (NOT DETECT); Influenza A/H3 Not Detected (NOT DETECT); Influenza B Not Detected (NOT DETECT); Mycoplasma pneumoniae Not Detected (NOT DETECT); Parainfluenza Virus 1 Not Detected (NOT DETECT); Parainfluenza Virus 2 Not Detected (NOT DETECT); Parainfluenza Virus 3 Not Detected (NOT DETECT); Parainfluenza Virus 4 Not Detected (NOT DETECT); Respiratory Syncytial Virus Detected (NOT DETECT)
[2019-08-14 03:25] LABS: U Amphetamine Screen Not Detected; U Barbituate Screen Not Detected; U Benzodiazapine Screen Not Detected; U Cocaine Screen Not Detected; U Methadone Screen Not Detected; U Methamphetamine Screen Not Detected; U Opiates Screen Not Detected
[2019-08-14 03:26] LABS: U Buprenorphine Screen Not Detected; U Oxycodone Screen Not Detected; U Propoxyphene Screen Not Detected
--- NOTE | 2019-08-14 05:02 | NUR ---
SHIFT SUMMARY PT ARRIVED TO FLOOR IN NO DISTRESS. PT RECIEVED BREATHING TX'S VIA RT. PT ON CONTINOUS BIOX. PT IS TOLERATING CPAP TONIGHT. PT HAS BEEN SLEEPING WELL. PT CURRENTLY SLEEPING IN NO DISTRESS. CALL LIGHT IN REACH.
[2019-08-14 05:11] LABS: U Cannabinoids Screen DETECTED
[2019-08-14 05:47] LABS: Hematocrit 44.9 % (37.0-53.0); Hemoglobin 14.6 g/dL (13.5-17.5); Mean Corpuscular HGB Conc 32.5 g/dL (31.5-36.5); Mean Corpuscular Volume 92 fL (80-100); Mean Platelet Volume 10.3 fL (9.1-12.4); Platelet Count 292 K/mm3 (150-400); RDW Standard Deviation 51.1 fL (35.1-46.3); Red Blood Cell Count 4.87 M/mm3 (4.30-5.90); White Blood Cell Count 21.13 K/mm3 (4.00-11.30)
[2019-08-14 05:59] LABS: Bun/Creatinine Ratio 15.5 (12.0-20.0); Calcium, Blood 9.3 mg/dL (8.5-10.1); Creatinine, Blood 3.36 mg/dL (0.60-1.20); Potassium, Blood 4.7 mmol/L (3.5-5.5)
--- NOTE | 2019-08-14 17:49 | NUR ---
NO ACUTE CHANGES TO PATIENT. HE IS ABLE TO EXPRESS ANY NEEDS AND IS INDEPENDENT IN THE ROOM. NO COMPLAINTS OF PAIN. COMPLIANT WITH ALL CARES.
--- NOTE | 2019-08-14 22:08 | NUR ---
DR ROLLE AT BEDSIDE; BLADDER SCAN NEGATIVE AFTER PT VOIDED 350ML CLEAR YELLOW FLUID.
--- NOTE | 2019-08-15 03:57 | NUR ---
SHIFT SUMMARY: 64 Y/O OBESE MALE RESTED COMFORTABLY ALL SHIFT WHILE WEARING C/PAP AND TOLERATED WEARING DEVICE WELL; PT DENIES PAIN OR NAUSEA; PT BECOMES SOB WITH VERY SLIGHT EXERTION AT TIMES; VOIDED LARGE AMOUNTS CLEAR YELLOW FLUID AFTER BUMEX 2MG IVP WAS GIVEN LAST NOC; DENIES PAIN OR NAUSEA; ALERT AND ORIENTED X 4; BED LOW POSITION WITH CALL LIGHT AT SIDE.
[2019-08-15 05:18] LABS: BASOPHILS ABSOLUTE AUTO 0.03 K/mm3 (0.00-0.23); BASOPHILS PERCENT AUTO 0 % (0-2); EOSINOPHILS PERCENT AUTO 0 % (0-6); Hematocrit 42.1 % (37.0-53.0); Hemoglobin 13.7 g/dL (13.5-17.5); IMMATURE GRAN ABSOLUTE AUTO 0.27 K/mm3 (0.00-0.10); IMMATURE GRAN PERCENT AUTO 1 % (0-1); LYMPHOCYTES ABSOLUTE AUTO 0.47 K/mm3 (0.84-5.20); LYMPHOCYTES PERCENT AUTO 2 % (21-46); MONOCYTES ABSOLUTE AUTO 0.66 K/mm3 (0.16-1.47); MONOCYTES PERCENT AUTO 3 % (4-13); Mean Corpuscular HGB 29.9 pg (26.0-34.0); Mean Corpuscular HGB Conc 32.5 g/dL (31.5-36.5); Mean Corpuscular Volume 92 fL (80-100); NEUTROPHILS ABSOLUTE AUTO 20.34 K/mm3 (1.96-9.15); NEUTROPHILS PERCENT AUTO 94 % (41-73); Platelet Count 326 K/mm3 (150-400); RDW Coefficient Variation 14.7 % (11.7-14.2); RDW Standard Deviation 50.3 fL (35.1-46.3); Red Blood Cell Count 4.58 M/mm3 (4.30-5.90); White Blood Cell Count 21.77 K/mm3 (4.00-11.30)
[2019-08-15 05:36] LABS: Albumin, Blood 3.3 g/dL (3.4-5.0); Anion Gap 10 mmol/L (6-16); Blood Urea Nitrogen 71 mg/dL (8-24); CO2, Blood 24 mmol/L (21-32); Calcium, Blood 8.9 mg/dL (8.5-10.1); Chloride, Blood 95 mmol/L (98-108); Creatinine, Blood 3.23 mg/dL (0.60-1.20); Glomerular Filtration Rate 21 (60-); Glucose, Blood 307 mg/dL (70-99); Magnesium, Blood 2.4 mg/dL (1.6-2.4); Phosphorus, Blood 4.5 mg/dL (2.5-4.9); Potassium, Blood 4.4 mmol/L (3.5-5.5); Sodium, Blood 129 mmol/L (136-145)
--- NOTE | 2019-08-15 15:28 | NUR ---
SUMMARY PT IS A/O X4, PLEASANT AFFECT. IND IN ROOM. DROPLET ISO R/T +RSV. HE STATE NO SOB @ REST, STATES BREATHING IMPROVING. LS DECREASED w OCCASIONAL REAL ESTATE PROFESSIONAL COUGH, BIOX 92% RA. WBC 21.7. BLOOD SUGARS HAVE BEEN ELEVATED, DR THOMPSON ASK THAT WE PROVIDE DIABETIC & INSULIN ADMIN EDUCATION. HAVE PROVIDED PT w BASIC INSTRUCT TODAY. GFR LOW @ 21, DR ROLLE HAS BEEN CONSULTED, MANAGING RENAL FX. VSS.
--- NOTE | 2019-08-15 16:17 | NUR ---
ECHOCARDIOGRAM COMPLETED
--- NOTE | 2019-08-15 21:24 | NUR ---
64 Y/O OBESE MALE UP AMBULATING AROUND IN ROOM WITH MINIMAL SOB NOTED WITH ACTIVITY; PT VOICED HE FEELS MUCH BETTER; LUNG SOUNDS ARE DIMINISHED THROUGHOUT; DENIES PAIN OR NAUSEA.
--- NOTE | 2019-08-16 03:55 | NUR ---
SHIFT SUMMARY: 64 Y/O OBESE MALE RESTED COMFORTABLY ALL SHIFT WHILE WEARING C/PAP; DENIES PAIN OR NAUSEA; PT CONTINUES TO HAVE SOB WITH SLIGHT ACTIVITY IN ROOM WITH OCCASIONAL NON PRODUCTIVE COUGH NOTED; DENIES PAIN OR NAUSEA; PT DEMONSTRATED ABILITY TO GIVE INSULIN TO ABDOMEN WITH GOOD TECHNIQUE NOTED; PT NEEDS CONTINUED EDUCATION ON HOW CHECK BLOOD SUGAR, DRAW UP INSULIN AND RECORD RESULTS IN DAILY DAIRY; BED LOW POSITION WITH CALL LIGHT AT SIDE.
[2019-08-16 05:40] LABS: Hematocrit 42.8 % (37.0-53.0)
[2019-08-16 06:22] LABS: Albumin, Blood 3.5 g/dL (3.4-5.0); Anion Gap 10 mmol/L (6-16); Blood Urea Nitrogen 65 mg/dL (8-24); Bun/Creatinine Ratio 27.3 (12.0-20.0); CO2, Blood 24 mmol/L (21-32); Calcium, Blood 9.1 mg/dL (8.5-10.1); Chloride, Blood 98 mmol/L (98-108); Creatinine, Blood 2.38 mg/dL (0.60-1.20); Glomerular Filtration Rate 29 (60-); Glucose, Blood 285 mg/dL (70-99); Magnesium, Blood 2.5 mg/dL (1.6-2.4); Phosphorus, Blood 4.5 mg/dL (2.5-4.9); Potassium, Blood 4.7 mmol/L (3.5-5.5); Sodium, Blood 132 mmol/L (136-145)
[2019-08-16] MEDS ORDERED: Prednisone10 MG (13:38)
[2019-08-16] MEDS ORDERED: BASAGLAR K100 UNIT/1 SC (13:39)
[2019-08-16] MEDS ORDERED: Humalog100 UNIT/3 (13:40)
[2019-08-16] MEDS ORDERED: Duoneb 2.5-0.5 M3 ML (13:41)
[2019-08-16] MEDS ORDERED: CEFD300 PO (13:42)
--- NOTE | 2019-08-16 15:05 | NUR ---
DISCHARGE DR THOMPSON IN TO SEE PT THIS AM, PT STATE FEELING IMPROVED HOPEFUL TO GO HOME. DR THOMPSON PROVIDE D/C ORDERS. IV D/C INTACT. ORDERS FAXED TO [facility]. D/C INSTRUCT PROVIDE w EMPHASIS ON DM TYPE 2, INSULIN ADMINISTRATION. PT & VERBALIZE UNDERSTANDING. THEY ARE PLEASANT & APPRECIATIVE. W/C ESCORT FROM HOSP PROVIDED.
== END 2019-08-16 14:39 | disposition home or self-care (01) | DRG 193 ==
LOC: ER 13:07 → MEDS 13:08
PROVIDERS: Emergency Medicine; Internal Medicine; Internal Medicine Nephrology; Nurse Practitioner Acute Care; Physician Assistant; ADMIT Hospitalist
DX: J12.1 Respiratory syncytial virus pneumonia (principal); J96.21 Acute and chronic respiratory failure with hypoxia; J44.1 Chronic obstructive pulmonary disease with (acute) exacerbation; N17.9 Acute kidney failure, unspecified; F19.20 Other psychoactive substance dependence, uncomplicated; N25.81 Secondary hyperparathyroidism of renal origin; E87.2 Acidosis; Z87.891 Personal history of nicotine dependence; G47.33 Obstructive sleep apnea (adult) (pediatric); Z98.1 Arthrodesis status; N18.3 Chronic kidney disease, stage 3 (moderate); E11.22 Type 2 diabetes mellitus with diabetic chronic kidney disease; E11.40 Type 2 diabetes mellitus with diabetic neuropathy, unspecified; E88.09 Other disorders of plasma-protein metabolism, not elsewhere classified; Z90.5 Acquired absence of kidney; E83.41 Hypermagnesemia; J20.9 Acute bronchitis, unspecified; Z79.4 Long term (current) use of insulin
CPT/HCPCS: 0099U; 36415; 71046; 76770; 78582; 80048; 80053; 80069; 82947; 83735; 84484; 85014; 85018; 85025; 85027; 85379; 93005; 93010; 93306; 93970; 94640; 94644; 94660; 94762; 96365; 96366; 96367; 96375; 96376; 99285-25; A9270-GY; A9540; A9558; G0378; J0456; J0696; J1650; J2920; J2930; J7050

== ENCOUNTER → 2019-12-24 | Outpatient (CLI) | payer MEDICARE ==
[~2019-12-24] MED LIST changes: +BASAGLAR K100 UNIT/1 SC; +CEFD300 PO; +Duoneb 2.5-0.5 M3 ML; +Humalog100 UNIT/3; +Prednisone10 MG; +Ramipril10 MG PO
[2019-12-24 18:06] LABS: Microalb/Creat Ratio UR, Rand 31.48 mg/g (0.000-30.000); Microalbumin, Random Urine 70.2 mg/L (0.000-20.000)
== END ==
LOC: LAB 13:10 → LAB SHORT 13:10
PROVIDERS: Student in an Organized Health Care Education/Training Program
DX: E11.9 Type 2 diabetes mellitus without complications (principal)
CPT/HCPCS: 82043; 82570

== ENCOUNTER → 2020-05-30 | Outpatient (CLI) | payer MEDICARE ==
[2020-06-01 17:39] LABS: CORONAVIRUS (COVID19) CSH-NRL Negative (Negative)
== END | disposition home or self-care (01) ==
LOC: LAB SHORT 14:57 → LAB 14:57 → PLD 14:57
PROVIDERS: Chiropractor
DX: B34.9 Viral infection, unspecified (principal); Z20.828 Contact with and (suspected) exposure to other viral communicable diseases
CPT/HCPCS: U0003

== ENCOUNTER → 2021-02-20 | Outpatient (CLI) | payer MEDICARE | END | disposition home or self-care (01) | LOC: LAB 12:55 → LAB SHORT 12:55 | DX: L82.1 Other seborrheic keratosis (principal) | CPT/HCPCS: 88305 ==

== ENCOUNTER 2021-10-19 11:37 | Day surgery (SDC) | payer MEDICARE ==
[~2021-10-19] VITALS: Ht 180.3 cm; Wt 127.4 kg
[~2021-10-19 11:37] MED LIST changes: +ATEN25 PO; +Amaryl2 MG PO; +BEVESPI AEROS10.7 G1 INH; +DALIRESP250 MCG PO; +OZEMPIC0.25 MG/0. SC
--- NOTE | 2021-10-19 12:49 | NUR ---
10/19/21 1249 Audelia Nunez NO BREATHING TREATMENT PER DR. MONTALVO. PT USED INHALERS THIS AM AND TOOK PRENISONE.
== END 2021-10-19 14:05 | disposition home or self-care (01) ==
LOC: ORSCSDS 11:37
PROVIDERS: Ophthalmology
PROC: 08RJ3JZ Replacement of Right Lens with Synthetic Substitute, Percutaneous Approach (ICD-10-PCS; principal; 2021-10-19 13:30)
DX: H25.13 Age-related nuclear cataract, bilateral (principal); J44.9 Chronic obstructive pulmonary disease, unspecified; E11.9 Type 2 diabetes mellitus without complications; I10 Essential (primary) hypertension; E66.9 Obesity, unspecified; Z68.39 Body mass index [BMI] 39.0-39.9, adult; G47.33 Obstructive sleep apnea (adult) (pediatric); Z79.899 Other long term (current) drug therapy
CPT/HCPCS: 82947; J2001; J2250; J3010; J3301; J7040; V2632

== ENCOUNTER 2021-11-09 12:08 | Day surgery (SDC) | payer MEDICARE ==
[~2021-11-09] VITALS: Ht 180.3 cm; Wt 129.2 kg
--- NOTE | 2021-11-09 12:29 | NUR ---
11/09/21 1229 Cesar Martinez CALL LIGHT WITHIN REACH. TETRACAINE AT 1221 PLEDGETT AT 1223 IN THE RIGHT EYE
== END 2021-11-09 13:34 | disposition home or self-care (01) ==
LOC: ORSCSDS 12:08
PROVIDERS: Ophthalmology
PROC: 08RK3JZ Replacement of Left Lens with Synthetic Substitute, Percutaneous Approach (ICD-10-PCS; principal; 2021-11-09 13:30)
DX: H25.12 Age-related nuclear cataract, left eye (principal); I10 Essential (primary) hypertension; J45.909 Unspecified asthma, uncomplicated; E11.9 Type 2 diabetes mellitus without complications; J44.9 Chronic obstructive pulmonary disease, unspecified; Z79.899 Other long term (current) drug therapy
CPT/HCPCS: 82947; J2001; J2250; J3010; J3301; J7040; V2632

== ENCOUNTER → 2022-04-09 | Outpatient (CLI) | payer MEDICARE ==
[~2022-04-09] MED LIST changes: +DOXY100 PO
[2022-04-09 12:49] LABS: BASOPHILS ABSOLUTE AUTO 0.03 K/mm3 (0.00-0.23); BASOPHILS PERCENT AUTO 0 % (0-2); EOSINOPHILS PERCENT AUTO 0 % (0-6); IMMATURE GRAN ABSOLUTE AUTO 0.03 K/mm3 (0.00-0.10); IMMATURE GRAN PERCENT AUTO 0 % (0-1); LYMPHOCYTES ABSOLUTE AUTO 1.27 K/mm3 (0.84-5.20); LYMPHOCYTES PERCENT AUTO 17 % (21-46); MONOCYTES ABSOLUTE AUTO 0.89 K/mm3 (0.16-1.47); MONOCYTES PERCENT AUTO 12 % (4-13); Mean Corpuscular HGB 30.5 pg (26.0-34.0); Mean Corpuscular HGB Conc 32.7 g/dL (31.5-36.5); Mean Corpuscular Volume 93 fL (80-100); Mean Platelet Volume 10.5 fL (9.1-12.4); NEUTROPHILS ABSOLUTE AUTO 5.23 K/mm3 (1.96-9.15); NEUTROPHILS PERCENT AUTO 70 % (41-73); Platelet Count 277 K/mm3 (150-400); RDW Coefficient Variation 14.2 % (11.7-14.2); RDW Standard Deviation 49.1 fL (35.1-46.3); Red Blood Cell Count 5.25 M/mm3 (4.30-5.90); White Blood Cell Count 7.45 K/mm3 (4.00-11.30)
[2022-04-09 13:02] LABS: Albumin, Blood 3.7 g/dL (3.4-5.0); Bilirubin, Total 0.4 mg/dL (0.1-1.0); Bun/Creatinine Ratio 11.4 (12.0-20.0); Calcium, Blood 8.8 mg/dL (8.5-10.1); Creatinine, Blood 1.93 mg/dL (0.60-1.20); Globulin, Blood 3.6 g/dL (2.2-4.0); Potassium, Blood 5.2 mmol/L (3.5-5.5); Total Protein, Blood 7.3 g/dL (6.4-8.2)
== END | disposition home or self-care (01) ==
LOC: LAB SHORT 12:46 → LAB 12:46
PROVIDERS: Physician Assistant
DX: U07.1 COVID-19 (principal)
CPT/HCPCS: 80053; 85025